=== PATIENT | male | born 1970 | race Caucasian/White ===

== ENCOUNTER → 2017-02-02 | Outpatient (CLI) | payer BC ==
[2017-02-02 12:49] LABS: Basophils % (A) 1 %; CH 33.3; CHCM 35.2; Eosinophils # (A) 0.1 k/uL (0-0.7); Eosinophils % (A) 2 %; HCT 42.6 % (39.0-53.0); HDW 2.81; HGB 14.8 gm/dL (13.0-17.5); Luc # (Auto) 0.07; Luc % (Auto) 2; Lymphocytes # (A) 1.3 k/uL (1.0-4.8); Lymphocytes % (A) 31 %; MCH 33.1 pg (25.0-35.0); MCHC 34.8 g/dL (31.0-37.0); MCV 94.9 fL (80.0-100.0); Mean Platelet Volume 7.7; Monocytes # (A) 0.2 k/uL (0-1.0); Monocytes % (A) 6 %; Neutrophils # (A) 2.6 k/uL (1.3-7.7); Neutrophils % (A) 59 %; RBC 4.49 m/uL (4.30-5.90); WBC 4.3 k/uL (3.8-10.6); WBC (Perox) 4.21
--- NOTE | 2017-02-02 12:55 | XR ---
EXAMINATION TYPE: XR shoulder complete LT DATE OF EXAM: 02/02/2017 COMPARISON: NONE HISTORY: 46-year-old male with shoulder pain for 2 weeks TECHNIQUE: 3 views FINDINGS: Mild joint space narrowing at the AC joint. Subacromial space is preserved without tendinous or bursa l calcifications. There is some sclerosis at the greater tuberosity. No acute fracture, subluxation, or dislocation. IMPRESSION: 1. No acute osseous abnormality seen. 2. Some sclerosis at the greater tuberosity could reflect underlying chronic rotator cuff tendinopath y. 3. Mild AC joint OA.
[2017-02-02 13:05] LABS: ALT 83 U/L (21-72); AST 41 U/L (17-59); Alkaline Phosphatase 63 U/L (38-126); Anion Gap 10 mmol/L; Blood Urea Nitrogen 17 mg/dL (9-20); Calcium 9.5 mg/dL (8.4-10.2); Carbon Dioxide 29 mmol/L (22-30); Chloride 104 mmol/L (98-107); Cholesterol 200 mg/dL (<200); Glucose 94 mg/dL (74-99); HDL Cholesterol 42 mg/dL (40-60); Non-African American GFR(MDRD) >60 (>60 ml/min/1.73 sqM); Potassium 4.7 mmol/L (3.5-5.1); Sodium 143 mmol/L (137-145); Total Bilirubin 0.6 mg/dL (0.2-1.3); Total Protein 6.8 g/dL (6.3-8.2); Uric Acid 5.1 mg/dL (3.5-8.5)
[2017-02-02 13:34] LABS: Prostate Specific Antigen 0.55 ng/mL (0.00-4.00)
== END | disposition home or self-care (01) ==
LOC: LABWHC1 12:10
PROVIDERS: ATTEND Nurse Practitioner Family
DX: M19.012 Primary osteoarthritis, left shoulder (principal); M75.82 Other shoulder lesions, left shoulder; I10 Essential (primary) hypertension; M10.9 Gout, unspecified; F41.9 Anxiety disorder, unspecified; R20.2 Paresthesia of skin; R07.9 Chest pain, unspecified; R53.83 Other fatigue; Z13.1 Encounter for screening for diabetes mellitus; Z13.220 Encounter for screening for lipoid disorders
CPT/HCPCS: 36415; 80053; 80061; 82607; 83036; 84153; 84443; 84550; 85025; 86677

== ENCOUNTER 2018-03-29 14:33 | Emergency (ER) | payer BC, OTHER ==
[2018-03-29] MEDS ORDERED: SODIUM CHLORIDE 0.9% 1,000 ML IV STA (14:48)
--- NOTE | 2018-03-29 14:56 | ED ---
General Adult HPI <Buzz Marquez - Last Filed: 03/29/18 17:14> - General Source: patient, RN notes reviewed Mode of arrival: ambulatory Limitations: no limitations <Missael Arndt - Last Filed: 03/29/18 17:30> - General Chief complaint: Abdominal Pain Stated complaint: Fall Time Seen by Provider: 03/29/18 14:38 - History of Present Illness Initial comments: Patient 47-year-old male presenting to the emergency room today with a chief complaint of pain in the right upper quadrant that started 4 hours ago. He does admit that he was outside cutting down a tree. He states he was standing at the top of an 8 foot ladder when the tree began to come towards him so he jumped out of the way. He states he landed on his feet on the ground when he bent down and had pain in the right upper quadrant. Patient states the pain has been present since. States it as a "burning" type pain in the right upper quadrant. Currently rates pain 6/10. Denies any radiation. He states movement does not seem to make it any worse. He does admit that he tried to eat some crackers and the pain got worse. Patient denies any other points of symptoms. (Missael Arndt) - Related Data Home Medications Medication Instructions Recorded Confirmed Atenolol [Tenormin] 100 mg PO DAILY 01/17/14 03/29/18 Omeprazole [PriLOSEC] 20 mg PO DAILY 01/17/14 03/29/18 Allopurinol [Zyloprim] 100 mg PO DAILY 03/29/18 03/29/18 Hydrochlorothiazide [Hydrodiuril] 25 mg PO DAILY 03/29/18 03/29/18 Ibuprofen [Motrin] 800 mg PO TID PRN 03/29/18 03/29/18 Lisinopril [Zestril] 2.5 mg PO DAILY 03/29/18 03/29/18 Allergies Allergy/AdvReac Type Severity Reaction Status Date / Time meperidine HCl [From Demerol] Allergy Anaphylaxis Verified 03/29/18 15:27 Review of Systems ROS Other: All systems not noted in ROS Statement are negative. <Buzz Marquez - Last Filed: 03/29/18 17:14> ROS Other: All systems not noted in ROS Statement are negative. <Missael Arndt - Last Filed: 03/29/18 17:30> ROS Statement: Those systems with pertinent positive or pertinent negative responses have been documented in the HPI. Past Medical History Past Medical History: Hypertension Additional Past Medical History / Comment(s): gout History of Any Multi-Drug Resistant Organisms: None Reported Past Surgical History: Appendectomy, Orthopedic Surgery Past Psychological History: No Psychological Hx Reported Smoking Status: Former smoker Past Alcohol Use History: None Reported Past Drug Use History: None Reported <Missael Arndt - Last Filed: 03/29/18 17:30> General Exam <Buzz Marquez - Last Filed: 03/29/18 17:14> Limitations: no limitations <Missael Arndt - Last Filed: 03/29/18 17:30> - General Exam Comments Initial Comments: General: The patient is awake and alert, in no distress, and does not appear acutely ill. Eye: There is normal conjunctiva bilaterally. No signs of icterus. Ears, nose, mouth and throat: There are moist mucous membranes and no oral lesions. Neck: The neck is supple, there is no tenderness or JVD. Cardiovascular: There is a regular rate and rhythm. No murmur, rub or gallop is appreciated. Respiratory: Lungs are clear to auscultation, respirations are non-labored, breath sounds are equal. No wheezes, stridor, rales, or rhonchi. Gastrointestinal: Admits soft on palpation. There is no bruising or ecchymosis. Patient is tender right upper quadrant. No rebound, guarding or CVA tenderness. Musculoskeletal: Normal ROM, no tenderness. Strength 5/5. Sensation intact. Pulses equal bilaterally 2+. Neurological: A&O x 3. CN II-XII intact, There are no obvious motor or sensory deficits. Coordination appears grossly intact. Speech is normal. Skin: Skin is warm and dry and no rashes or lesions are noted. Psychiatric: Cooperative, appropriate mood & affect, normal judgment. (Missael Arndt) Course <Buzz Marquez - Last Filed: 03/29/18 17:14> <Missael Arndt - Last Filed: 03/29/18 17:30> Vital Signs 03/29/18 03/29/18 03/29/18 14:34 15:32 16:18 Temperature 98.3 F Pulse Rate 64 57 L 57 L Respiratory 20 15 16 Rate Blood Pressure 162/101 171/114 161/98 O2 Sat by Pulse 99 97 98 Oximetry 03/29/18 03/29/18 16:30 16:50 Temperature Pulse Rate 58 L Respiratory 16 Rate Blood Pressure 149/99 164/102 O2 Sat by Pulse 98 Oximetry - Reevaluation(s) Reevaluation #1: 03/29/18 17:14 Patient reevaluated by myself, Dr. Marquez. Patient resting comfortably in bed. Mild tenderness right upper abdomen. Patient states he does have history of chronic elevation of his liver enzymes. CT report reviewed. Patient updated. Case was discussed with trauma surgeon on-call, Dr. Polanco who is comfortable with discharge home. She can follow-up with the patient. Patient was specifically noted of potential concern for bladder changes and need for follow-up with that as well. (Buzz Marquez) Medical Decision Making - Lab Data Result diagrams: 03/29/18 15:30 03/29/18 15:30 <Buzz Marquez - Last Filed: 03/29/18 17:14> - Lab Data Result diagrams: 03/29/18 15:30 03/29/18 15:30 <Missael Arndt - Last Filed: 03/29/18 17:30> - Medical Decision Making Patient's CT of the abdomen and pelvis reviewed and shows 1. Some possible mild bruising of these EKGs tissue along the flanks. 2. Otherwise, no acute traumatic sequelae identified in the abdomen or the pelvis. 3. Hepatomegaly with hepatic stenosis. 4. Appearance of eccentric right posterior bladder wall thickening may be due to patient motion artifact. 5. Bilateral L5 pars defects as read by radiologist. Case discussed and seen by [facility] physician Dr. Marquez. He did discuss the case with surgeon fire investigation lieutenant who recommends the patient may follow-up in the office. Patient also be given urologist fire investigation lieutenant to follow up with over the next 2 days. Advised to return if symptoms increase or worsen or for any other concerns. ( Missael Arndt) - Lab Data Lab Results 03/29/18 03/29/18 03/29/18 Range/Units 15:30 15:30 15:30 WBC 5.4 (3.8-10.6) k/uL RBC 5.18 (4.30-5.90) m/uL Hgb 16.2 (13.0-17.5) gm/dL Hct 47.6 (39.0-53.0) % MCV 91.9 (80.0-100.0) fL MCH 31.4 (25.0-35.0) pg MCHC 34.1 (31.0-37.0) g/dL RDW 13.3 (11.5-15.5) % Plt Count 208 (150-450) k/uL Neutrophils % 58 % Lymphocytes % 31 % Monocytes % 6 % Eosinophils % 2 % Basophils % 1 % Neutrophils # 3.1 (1.3-7.7) k/uL Lymphocytes # 1.7 (1.0-4.8) k/uL Monocytes # 0.3 (0-1.0) k/uL Eosinophils # 0.1 (0-0.7) k/uL Basophils # 0.1 (0-0.2) k/uL PT (9.0-12.0) sec INR (<1.2) APTT (22.0-30.0) sec Sodium 142 (137-145) mmol/L Potassium 4.2 (3.5-5.1) mmol/L Chloride 102 (98-107) mmol/L Carbon Dioxide 30 (22-30) mmol/L Anion Gap 10 mmol/L BUN 20 (9-20) mg/dL Creatinine 0.89 (0.66-1.25) mg/dL Est GFR (CKD-EPI)AfAm >90 (>60 ml/min/1.73 sqM) Est GFR (CKD-EPI)NonAf >90 (>60 ml/min/1.73 sqM) Glucose 98 (74-99) mg/dL Calcium 9.6 (8.4-10.2) mg/dL Total Bilirubin 0.5 (0.2-1.3) mg/dL AST 87 H (17-59) U/L ALT 163 H (21-72) U/L Alkaline Phosphatase 58 (38-126) U/L Total Protein 7.7 (6.3-8.2) g/dL Albumin 4.7 (3.5-5.0) g/dL Amylase 53 (30-110) U/L Lipase 188 (23-300) U/L Urine Color Yellow Urine Appearance Clear (Clear) Urine pH 6.5 (5.0-8.0) Ur Specific Howell 1.014 (1.001-1.035) Urine Protein Negative (Negative) Urine Glucose (UA) Negative (Negative) Urine Ketones Negative (Negative) Urine Blood Negative (Negative) Urine Nitrite Negative (Negative) Urine Bilirubin Negative (Negative) Urine Urobilinogen <2.0 (<2.0) mg/dL Ur Leukocyte Esterase Negative (Negative) 03/29/18 Range/Units 15:30 WBC (3.8-10.6) k/uL RBC (4.30-5.90) m/uL Hgb (13.0-17.5) gm/dL Hct (39.0-53.0) % MCV (80.0-100.0) fL MCH (25.0-35.0) pg MCHC (31.0-37.0) g/dL RDW (11.5-15.5) % Plt Count (150-450) k/uL Neutrophils % % Lymphocytes % % Monocytes % % Eosinophils % % Basophils % % Neutrophils # (1.3-7.7) k/uL Lymphocytes # (1.0-4.8) k/uL Monocytes # (0-1.0) k/uL Eosinophils # (0-0.7) k/uL Basophils # (0-0.2) k/uL PT 9.4 (9.0-12.0) sec INR 0.9 (<1.2) APTT 23.4 (22.0-30.0) sec Sodium (137-145) mmol/L Potassium (3.5-5.1) mmol/L Chloride (98-107) mmol/L Carbon Dioxide (22-30) mmol/L Anion Gap mmol/L BUN (9-20) mg/dL Creatinine (0.66-1.25) mg/dL Est GFR (CKD-EPI)AfAm (>60 ml/min/1.73 sqM) Est GFR (CKD-EPI)NonAf (>60 ml/min/1.73 sqM) Glucose (74-99) mg/dL Calcium (8.4-10.2) mg/dL Total Bilirubin (0.2-1.3) mg/dL AST (17-59) U/L ALT (21-72) U/L Alkaline Phosphatase (38-126) U/L Total Protein (6.3-8.2) g/dL Albumin (3.5-5.0) g/dL Amylase (30-110) U/L Lipase (23-300) U/L Urine Color Urine Appearance (Clear) Urine pH (5.0-8.0) Ur Specific Howell (1.001-1.035) Urine Protein (Negative) Urine Glucose (UA) (Negative) Urine Ketones (Negative) Urine Blood (Negative) Urine Nitrite (Negative) Urine Bilirubin (Negative) Urine Urobilinogen (<2.0) mg/dL Ur Leukocyte Esterase (Negative) Disposition <Buzz Marquez - Last Filed: 03/29/18 17:14> Is patient prescribed a controlled substance at d/c from ED?: No Time of Disposition: 17:30 <Missael Arndt - Last Filed: 03/29/18 17:30> Clinical Impression: Abdominal pain Disposition: HOME SELF-CARE Condition: Good Instructions: Abdominal Pain (ED) Additional Instructions: Please follow-up with general surgeon, urologist, family doctor in the next 2 days of symptoms have not improved. Please return to emergency room if the symptoms increase or worsen or for any other concerns. Referrals: Jack Ley MD [Primary Care Provider] - 1-2 days Aby Luther MD [STAFF PHYSICIAN] - 1-2 days Edmundo White MD [STAFF PHYSICIAN] - 1-2 days
[2018-03-29 15:52] LABS: Appearance,Urine Clear (Clear); Bilirubin,Urine Negative (Negative); Blood,Urine Negative (Negative); Color,Urine Yellow; Glucose,Urine (UA) Negative (Negative); Ketones,Urine Negative (Negative); Leukocyte Esterase,Urine Negative (Negative); Nitrite,Urine Negative (Negative); PH, Urine 6.5 (5.0-8.0); Protein,Urine Negative (Negative); Specific Gravity,Urine 1.014 (1.001-1.035); Urobilinogen,Urine <2.0 mg/dL (<2.0)
[2018-03-29 15:54] LABS: Basophils # (A) 0.1 k/uL (0-0.2); Basophils % (A) 1 %; Eosinophils # (A) 0.1 k/uL (0-0.7); Eosinophils % (A) 2 %; HCT 47.6 % (39.0-53.0); HGB 16.2 gm/dL (13.0-17.5); Lymphocytes # (A) 1.7 k/uL (1.0-4.8); Lymphocytes % (A) 31 %; MCH 31.4 pg (25.0-35.0); MCHC 34.1 g/dL (31.0-37.0); MCV 91.9 fL (80.0-100.0); Mean Platelet Volume 6.8; Monocytes # (A) 0.3 k/uL (0-1.0); Monocytes % (A) 6 %; Neutrophils # (A) 3.1 k/uL (1.3-7.7); Neutrophils % (A) 58 %; Platelet Count 208 k/uL (150-450); RBC 5.18 m/uL (4.30-5.90); RDW 13.3 % (11.5-15.5); WBC 5.4 k/uL (3.8-10.6)
[2018-03-29 16:04] LABS: INR 0.9 (<1.2); Partial Thromboplastin Time 23.4 sec (22.0-30.0); Prothrombin Time 9.4 sec (9.0-12.0)
[2018-03-29 16:09] LABS: ALT 163 U/L (21-72); AST 87 U/L (17-59); Albumin 4.7 g/dL (3.5-5.0); Alkaline Phosphatase 58 U/L (38-126); Amylase 53 U/L (30-110); Anion Gap 10 mmol/L; Blood Urea Nitrogen 20 mg/dL (9-20); Calcium 9.6 mg/dL (8.4-10.2); Carbon Dioxide 30 mmol/L (22-30); Chloride 102 mmol/L (98-107); Glucose 98 mg/dL (74-99); Lipase 188 U/L (23-300); Potassium 4.2 mmol/L (3.5-5.1); Sodium 142 mmol/L (137-145); Total Bilirubin 0.5 mg/dL (0.2-1.3); Total Protein 7.7 g/dL (6.3-8.2)
[2018-03-29] MEDS ORDERED: hydrALAZINE HCL 20 MG/ML 1 ML VIAL IVP STA (16:15)
[2018-03-29 16:22] VITALS: RESP 16
--- NOTE | 2018-03-29 16:29 | CT ---
EXAMINATION TYPE: CT abdomen pelvis w con DATE OF EXAM: 03/29/2018 COMPARISON: 07/08/2010 HISTORY: 47-year-old male Fall from back of truck, right sided abdomen pain. TECHNIQUE: Contiguous axial scanning of the abdomen and pelvis following administration of 100 ml Iso jose 300 IV contrast. Delayed images through the kidneys and coronal/sagittal reconstructions perform ed. CT DLP: 2389 mGycm Automated exposure control for dose reduction was used. FINDINGS: Heart upper limits of normal in size without pericardial effusion. Small hiatal hernia. Some hazy densities in both lower lungs likely areas of atelectasis. Low attenuation of the hepatic parenchyma with the liver measuring mildly enlarged approximately 19 c m. No focal lesion identified. Portal venous system is patent. No biliary ductal dilatation. Gallbladder, adrenal glands, left kidney, spleen, and pancreas appear within normal limits. 1.3 cm likely cortical cyst posterior right kidney. No hydronephrosis. Mild sienna mesentery centrally in the abdomen with scattered prominent but nonenlarged lymph nodes me asuring up to 6 mm. Finding is unchanged from 2010 suggesting a chronic, benign postinflammatory etio logy. No dilated small bowel, free fluid, or free air. The appendix is not discretely visualized. No second adolph findings of acute appendicitis. Prominent motion artifacts along the lower abdomen. Mild stool burden without pericolonic inflammator y change. Circumferential bladder wall thickening. Despite motion artifacts accounting for apparent eccentric b ladder wall thickening posteriorly on the right, refer to axial image 82. No abnormal fluid collectio n in the pelvis or pelvic lymphadenopathy. There is some mild edema along the deep subcutaneous adipose layer along the right flank. There are b ilateral L5 pars defects and mild degenerative changes lower lumbar spine. Mild degenerative changes at the hips. IMPRESSION: 1. SOME POSSIBLE MILD BRUISING OF THE SUBCUTANEOUS TISSUES ALONG THE FLANKS. 2. OTHERWISE, NO ACUTE TRAUMATIC SEQUELAE IDENTIFIED IN THE ABDOMEN OR PELVIS. 3. HEPATOMEGALY WITH HEPATIC STEATOSIS. 4. THE APPEARANCE OF ECCENTRIC RIGHT POSTERIOR BLADDER WALL THICKENING MAY BE DUE TO PATIENT MOTION A RTIFACT. CORRELATE WITH URINALYSIS AND URINE CYTOLOGY TO ASSESS THE NEED FOR DIRECT VISUALIZATION TO EXCLUDE A UROTHELIAL LESION. 5. BILATERAL L5 PARS DEFECTS.
[2018-03-29 17:48] VITALS: BP 152/89; PULSE 56
[2018-03-29 18:00] VITALS: TEMP 97.9
== END 2018-03-29 17:59 | disposition home or self-care (01) ==
LOC: EC 14:33
DX: R10.11 Right upper quadrant pain (principal); K76.0 Fatty (change of) liver, not elsewhere classified; N32.89 Other specified disorders of bladder; I10 Essential (primary) hypertension; M10.9 Gout, unspecified; Z87.891 Personal history of nicotine dependence; Z79.899 Other long term (current) drug therapy; Z88.5 Allergy status to narcotic agent; Z90.49 Acquired absence of other specified parts of digestive tract
CPT/HCPCS: 36415; 80053; 82150; 83690; 85025; 85610; 85730; 81003; 74177; 99284; 96374; 96361 ×2; J0360; Q9967

== ENCOUNTER → 2018-05-04 | Outpatient (CLI) | payer OTHER | END | disposition home or self-care (01) | LOC: LABPAT 15:18 | PROVIDERS: ATTEND Surgery Plastic and Reconstructive Surgery | DX: Z01.818 Encounter for other preprocedural examination (principal) | CPT/HCPCS: 93005 ==

== ENCOUNTER 2018-05-08 06:08 | Day surgery (SDC) | payer OTHER ==
[2018-05-04 10:20] VITALS: BMI 40.3
--- NOTE | 2018-05-07 15:21 | P.GSHP ---
History of Present Illness H&P Date: 05/08/18 CHIEF COMPLAINT: Cholecystitis HISTORY OF PRESENT ILLNESS: The patient is a 47-year-old male who presents with history of epigastric including right upper quadrant abdominal pain. He underwent diagnostic studies for the gallbladder. Separately his clinical picture was consistent with cholecystitis. Now he presents for surgical intervention. PAST MEDICAL HISTORY: Please see list PAST SURGICAL HISTORY: Please see list MEDICATIONS: Please see list ALLERGIES: Denies. SOCIAL HISTORY: No illicit drug use or recent tobacco use FAMILY HISTORY: Pertinent for gallbladder disease REVIEW OF ORGAN SYSTEMS: CONSTITUTIONAL: No reports of fevers or chills. HEENT: Denies any troubles with the vision or hearing. ENDOCRINE: No reports of hypothyroidism. No diabetes. RESPIRATORY: No recent pneumonias. CARDIOVASCULAR: Denies chest pain or palpitations GI: No blood in stools or constipation. MUSCULOSKELETAL: Has occasional joint pain including back pain. NEURO: No seizure disorders or headaches. No recent stroke. PSYCH: No depression or suicidal ideation. HEMATOLOGIC: No personal or family history of DVTs or pulmonary emboli. PHYSICAL EXAM: VITAL SIGNS: Afebrile vital signs stable GENERAL: Well-developed pleasant male in no acute distress. HEENT: No scleral icterus. Extraocular movements grossly intact. Moist buccal mucosa. NECK: Supple without lymphadenopathy. CHEST: Unlabored respirations. Equal bilateral excursions. CARDIOVASCULAR: Regular rate regular rhythm rhythm. Distal 2+ pulses. ABDOMEN: Soft, nondistended. Tender along the epigastrium and right upper quadrant. MUSCULOSKELETAL: No clubbing, cyanosis, or edema. NEURO : No focal or lateralizing signs. Cranial nerves II-12 within normal limits. PSYCH: Alert and oriented to person, place and time. SKIN: Well perfused. Good skin turgor. ASSESSMENT: 1. Epigastric and right upper quadrant abdominal pain 2. Chronic cholecystitis PLAN: 1. Will need a robotic cholecystectomy possible open. Benefits and risks were described. 2. Heparin for DVT prophylaxis 5000 units. 3. Antibiotic prophylaxis. Past Medical History Past Medical History: GERD/Reflux, Hypertension Additional Past Medical History / Comment(s): gout History of Any Multi-Drug Resistant Organisms: None Reported Past Surgical History: Appendectomy, Orthopedic Surgery Additional Past Surgical History / Comment(s): rt index finger reattached Past Anesthesia/Blood Transfusion Reactions: Motion Sickness Smoking Status: Former smoker - Past Family History Mother Family Medical History: Cancer Additional Family Medical History / Comment(s): melanoma Medications and Allergies Home Medications Medication Instructions Recorded Confirmed Type Atenolol [Tenormin] 100 mg PO HS 01/17/14 05/04/18 History Omeprazole [PriLOSEC] 20 mg PO HS 01/17/14 05/04/18 History Allopurinol [Zyloprim] 100 mg PO HS 03/29/18 05/04/18 History Hydrochlorothiazide [Hydrodiuril] 25 mg PO HS 03/29/18 05/04/18 History Allergies Allergy/AdvReac Type Severity Reaction Status Date / Time meperidine HCl [From Demerol] Allergy Anaphylaxis Verified 05/04/18 10:06
[~2018-05-08 06:08] MED LIST: HEPARIN SODIUM,PORCINE 5,000 UNIT/ML 1 ML VIAL SQ ONE
[2018-05-08] MEDS ORDERED: ONDANSETRON 4 MG/2 ML VIAL IVP ONE (07:02)
[2018-05-08] MEDS ORDERED: LACTATED RINGERS 1,000 ML IV ONE (07:03)
[2018-05-08] MEDS ORDERED: DEXAMETHASONE SOD PHOSPHATE 10 MG/ML 1 ML VIAL IV ONE (07:03)
[2018-05-08 07:53] LABS: ALT 119 U/L (21-72); AST 56 U/L (17-59); Albumin 4.2 g/dL (3.5-5.0); Alkaline Phosphatase 53 U/L (38-126); Anion Gap 8 mmol/L; Blood Urea Nitrogen 19 mg/dL (9-20); Calcium 9.5 mg/dL (8.4-10.2); Carbon Dioxide 32 mmol/L (22-30); Chloride 104 mmol/L (98-107); Glucose 127 mg/dL (74-99); Potassium 4.7 mmol/L (3.5-5.1); Sodium 144 mmol/L (137-145); Total Bilirubin 0.7 mg/dL (0.2-1.3); Total Protein 6.8 g/dL (6.3-8.2)
[2018-05-08] MEDS ORDERED: NEOSTIGMINE 1 MG/ML 10 ML VIAL ONE (08:37)
[2018-05-08] MEDS ORDERED: GLYCOPYRROLATE 0.2 MG/ML 2 ML VIAL ONE (08:37)
[2018-05-08] MEDS ORDERED: LIDOCAINE 1% INJ 10MG/ML (20 ML MDV) ONE (08:37)
[2018-05-08] MEDS ORDERED: SUCCINYLCHOLINE CHLORIDE VIAL 200 MG/10 ML VIAL IV ONE (08:37)
[2018-05-08] MEDS ORDERED: VECURONIUM 10 MG VIAL IV ONE (08:37)
[2018-05-08] MEDS ORDERED: MIDAZOLAM 2 MG/2 ML VIAL ONE (08:37)
[2018-05-08] MEDS ORDERED: PROPOFOL 10 MG/ML 20 ML VIAL IV ONE (08:37)
[2018-05-08] MEDS ORDERED: fentaNYL (PF) 50 MCG/ML 2 ML AMP ONE (08:37)
[2018-05-08] MEDS ORDERED: INDOCYANINE GREEN 25 MG VIAL IV STA (08:54)
[2018-05-08] MEDS ORDERED: BUPIVACAIN-EPI 0.25%-1:200,000 30 ML VIAL SQ ONE (08:58)
--- NOTE | 2018-05-08 10:05 | P.PCN ---
Date of Procedure: 05/08/18 Description of Procedure: PREOPERATIVE DIAGNOSIS: Gastroesophageal reflux disease. Morbid obesity. POSTOPERATIVE DIAGNOSIS: Morbid obesity. Gastritis. Gastroesophageal reflux disease. Diaphragmatic hiatal hernia OPERATION: Esophagogastroduodenoscopy with biopsies along antrum. SURGEON: Aby Luther MD ANESTHESIA: MAC. INDICATIONS: The patient is a 47-year-old male who presents with a history of reflux disease. Benefits and risks of the procedure were described. Informed consent was obtained. DESCRIPTION: The patient was brought into the endoscopy suite and laid in the left lateral decubitus position. An Olympus gastroscope was passed along the posterior oropharynx down to the distal esophagus where the squamocolumnar junction was encountered at 40 cm from the incisors. The stomach was entered and no bile reflux was found. Additional findings are listed below. Biopsies with cold forceps were obtained of the antrum. The first through third portion of the duodenum was examined and unremarkable. Retroflexion of the scope confirmed Hill grade 3 lower esophageal valve. The squamocolumnar junction demonstrated LA grade B erosive esophagitis. The stomach was desufflated. The patient tolerated the procedure well. FINDINGS: Squamocolumnar junction 37 cm from the incisors. Diaphragmatic hiatus at 40 cm. Hiatal hernia, 3 cm Hill grade 3 lower esophageal valve. LA grade A erosive esophagitis. No active duodenitis. Chronic gastritis RECOMMENDATIONS: Upper endoscopy as needed.
[2018-05-08 10:11] VITALS: TEMP 97
--- NOTE | 2018-05-08 10:12 | P.OP ---
Date of Procedure: 05/08/18 Description of Procedure: SURGEON: KAT ZHANG MD PREOPERATIVE DIAGNOSES: 1. Right upper quadrant abdominal pain 2. Chronic cholecystitis 3. Morbid obesity due to excess calories, BMI 40 4. Gastroesophageal reflux disease 5. Hypertensive heart disease 6. Gout POSTOPERATIVE DIAGNOSES: 1. Right upper quadrant abdominal pain 2. Chronic cholecystitis 3. Morbid obesity due to excess calories, BMI 40 4. Gastroesophageal reflux disease 5. Hypertensive heart disease 6. Gout 7. Fatty liver disease 8. Moderate hepatomegaly OPERATION: 1. Robotic-assisted da Janis Xi laparoscopic cholecystectomy, multiport with FIREFLY 2. Intraoperative esophagogastroduodenoscopy with cold forceps biopsy (please see separate procedure note) ESTIMATED BLOOD LOSS: 5 mL. SPECIMENS REMOVED: Gallbladder. COMPLICATIONS: None. OPERATIVE FINDINGS: 1. Chronic cholecystitis 2. Moderate hepatomegaly with fatty liver disease INDICATIONS: The patient is a 47-year-old male who presents with cholelcystitis. Surgical intervention with a laparoscopic cholecystectomy was described at length including injury to the biliary tree, bleeding, infection, need for further surgery. Informed consent was obtained. Robotic assisted laparoscopic approach was described. Benefits and risks of the procedure including but not limited to bleeding, infection, injury to the biliary tree was described. Informed consent was obtained. DESCRIPTION OF PROCEDURE: Patient was brought to the operating room, placed in supine position. After general induction, the abdomen had been prepped and draped in standard sterile fashion. The robotic da Janis XI system was primed. After a timeout protocol was performed, the patient had been prepped and draped in standard sterile fashion. The patient was injected with indocyanine green. A 5 mm 0 degrees laparoscopic trocar entry was performed along the left upper quadrant. The abdomen insufflated to 15 mmHg pressure which was tolerated well. Diagnostic laparoscopy demonstrated no injury to bowel viscera or mesentery. The liver surface was unremarkable. Next, two 8 mm robotic ports were placed along the right upper abdomen. The camera 8-mm port was maintained along the epigastrium. Another 8 mm port was placed along the left upper abdominal wall after exchanging the 5 mm port. Please note that the ports were placed at least 10 to 15 cm away from the target anatomy of the gallbladder. The robot was docked along the left lateral abdomen. The patient was repositioned in reverse Trendelenburg position. Using a grasper for arm 3, a grasper for arm 4, including hook cautery for arm 1 , the robotic system was docked and primed as described. Instruments were interchanged by the optometry assistant including hook cautery, Bovie cautery and clip appliers. I had sat at the console. The gallbladder fundus was retracted over the dome of the liver. Initial attention was brought to the infundibulum which was gently retracted in the inferior lateral approach. Using a grasper, the cystic duct including the cystic artery was carefully skeletonized. FIREFLY was used to identify the cystic artery and cystic structures. Large PLASTIC clips were used throughout the entire case. Using a clip pipe bending machine operator 2 clips were placed proximally, and 1 clip was placed distally along the cystic duct and then cauterized with the cautery. Again care was taken to avoid any injury to the biliary tree as the common bile duct was clearly visualized during this portion of dissection. Next, the cystic artery was similarly clipped and cauterized. Electro-Bovie cautery was used to remove the gallbladder from the hepatic fossa. Hemostasis was checked and found to be adequate. The robot was undocked. I re-scrubbed into the case. Using a 10 mm Endo Catch bag via the left upper quadrant incision, the specimen was removed from the abdominal cavity. All pneumoperitoneum instruments were evacuated from the abdominal cavity. The incisions were reapproximated using 4-0 Monocryl in an interrupted subcuticular fashion. Fascial defects were less than 8 mm in size. Please note along the trocar sites, local anesthetic was placed as a field block prior to insertion of all instruments. Liquid glue was applied to the skin. At the end of the procedure needle, sponge, and instrument count had been verified correct by the converting technician. The patient was transferred to postanesthesia care unit in stable condition. Intraoperative films were shared with the patient's family who were very pleased with the level of care. Plan - Discharge Summary New Discharge Prescriptions: No Action Atenolol [Tenormin] 100 mg PO HS Omeprazole [PriLOSEC] 20 mg PO HS Hydrochlorothiazide [Hydrodiuril] 25 mg PO HS Allopurinol [Zyloprim] 100 mg PO HS Discharge Medication List Atenolol [Tenormin] 100 mg PO HS 01/17/14 [History] Omeprazole [PriLOSEC] 20 mg PO HS 01/17/14 [History] Allopurinol [Zyloprim] 100 mg PO HS 03/29/18 [History] Hydrochlorothiazide [Hydrodiuril] 25 mg PO HS 03/29/18 [History]
[2018-05-08] MEDS: HYDROmorphone 1 MG/ML 1 ML SYRINGE IVP ONE ×4 (10:21→10:38)
[2018-05-08] MEDS ORDERED: ONDANSETRON ODT 4 MG TAB PO ONE (14:10)
[2018-05-08 15:03] VITALS: RESP 16
[2018-05-08 15:07] VITALS: BP 133/63; PULSE 67
== END 2018-05-08 15:15 | disposition home or self-care (01) ==
LOC: OR 06:08
PROVIDERS: ATTEND Surgery Plastic and Reconstructive Surgery
DX: K80.44 Calculus of bile duct with chronic cholecystitis without obstruction (principal); K29.50 Unspecified chronic gastritis without bleeding; K22.10 Ulcer of esophagus without bleeding; K44.9 Diaphragmatic hernia without obstruction or gangrene; K21.0 Gastro-esophageal reflux disease with esophagitis; E66.01 Morbid (severe) obesity due to excess calories; Z68.41 Body mass index [BMI] 40.0-44.9, adult; I11.9 Hypertensive heart disease without heart failure; M10.9 Gout, unspecified; K76.0 Fatty (change of) liver, not elsewhere classified; I10 Essential (primary) hypertension; Z87.891 Personal history of nicotine dependence; Z79.899 Other long term (current) drug therapy; Z88.5 Allergy status to narcotic agent
CPT/HCPCS: 43239; 47562; S2900; 80053; 88304; 88305; 88342

== ENCOUNTER 2019-06-10 22:18 | Emergency (ER) | payer OTHER ==
--- NOTE | 2019-06-10 22:58 | ED ---
General Adult HPI - General Chief complaint: Recheck/Abnormal Lab/Rx Stated complaint: Hypertension Time Seen by Provider: 06/10/19 22:34 Source: patient, RN notes reviewed Mode of arrival: ambulatory Limitations: no limitations - History of Present Illness Initial comments: 48-year-old male with a past history of GERD, hypertension presents to the [facility] department for a chief complaint of high blood pressure. Patient states that he was seen at [place] earlier today and diagnosed with influenza A. Patient also had high blood pressure there. States that it was controlled in the emergency department and he was discharged home. States that at home he rechecked his blood pressure and it was 200 over something. He called his doctor who told him to take another blood pressure medication. Patient states he waited a little bit but his blood pressure did not come down. Patient states he did have a mild headache at that time but he does not have any headache. Patient has no other complaints at this time including shortness of breath, chest pain, abdominal pain, nausea or vomiting, or visual changes. - Related Data Home Medications Medication Instructions Recorded Confirmed Atenolol [Tenormin] 100 mg PO HS 01/17/14 05/08/18 Omeprazole [PriLOSEC] 20 mg PO HS 01/17/14 05/08/18 Allopurinol [Zyloprim] 100 mg PO HS 03/29/18 05/08/18 Hydrochlorothiazide [Hydrodiuril] 25 mg PO HS 03/29/18 05/08/18 Previous Rx's Medication Instructions Recorded HYDROcodone/APAP 7.5-325MG [Jayess 1 tab PO Q4H PRN 3 Days #18 tab 05/08/18 7.5-325] Ibuprofen [Motrin] 600 mg PO Q8HR PRN #30 tab 05/08/18 Allergies Allergy/AdvReac Type Severity Reaction Status Date / Time meperidine HCl [From Demerol] Allergy Anaphylaxis Verified 06/10/19 22:22 Review of Systems ROS Statement: Those systems with pertinent positive or pertinent negative responses have been documented in the HPI. ROS Other: All systems not noted in ROS Statement are negative. Past Medical History Past Medical History: GERD/Reflux, Hypertension Additional Past Medical History / Comment(s): gout History of Any Multi-Drug Resistant Organisms: None Reported Past Surgical History: Appendectomy, Cholecystectomy, Orthopedic Surgery Additional Past Surgical History / Comment(s): rt index finger reattached Past Anesthesia/Blood Transfusion Reactions: Motion Sickness Past Psychological History: Anxiety Smoking Status: Former smoker Past Alcohol Use History: None Reported Past Drug Use History: None Reported - Past Family History Mother Family Medical History: Cancer Additional Family Medical History / Comment(s): melanoma General Exam Limitations: no limitations General appearance: alert, in no apparent distress Head exam: Present: atraumatic, normocephalic, normal inspection Eye exam: Present: normal appearance, PERRL, EOMI. Absent: scleral icterus, conjunctival injection, periorbital swelling ENT exam: Present: normal exam, mucous membranes moist Neck exam: Present: normal inspection. Absent: tenderness, meningismus, lymphadenopathy Respiratory exam: Present: normal lung sounds bilaterally. Absent: respiratory distress, wheezes, rales, rhonchi, stridor Cardiovascular Exam: Present: regular rate, normal rhythm, normal heart sounds. Absent: systolic murmur, diastolic murmur, rubs, gallop, clicks GI/Abdominal exam: Present: soft, normal bowel sounds. Absent: distended, tenderness, guarding, rebound, rigid Course Vital Signs 06/10/19 22:19 Temperature 99.8 F H Pulse Rate 98 Respiratory 20 Rate Blood Pressure 160/83 O2 Sat by Pulse 96 Oximetry Medical Decision Making - Medical Decision Making Vitals are stable. Patient has a low-grade fever of 99.8 likely reflected to influenza A diagnoses earlier today. Patient's blood pressure is controlled at this time 160/83. Patient is not currently having any symptoms whatsoever. I offered further workup to patient including blood work however he declines at this time stating he wanted to go home when he saw his blood pressure was better anyway. I did discuss with patient that if he begins having any symptoms he needs to return here to the emergency determine. He is in agreement with this. He will follow up with his primary care provider. I discussed this case with attending Dr. Lange who agrees with this assessment and treatment plan. Disposition Clinical Impression: History of influenza, Hypertension Disposition: HOME SELF-CARE Condition: Good Instructions (If sedation given, give patient instructions): Influenza (ED) Additional Instructions: Please continue to take your blood pressure medication as directed. Drink plenty of fluids. Take motrin and tylenol for fever. Follow up with primary care in 1-2 days. Return to the emergency department if you have any worsening symptoms. Is patient prescribed a controlled substance at d/c from ED?: No Referrals: Karel Cole MD [Primary Care Provider] - 1-2 days Time of Disposition: 22:56
[2019-06-10 23:31] VITALS: BP 117/81; PULSE 88; RESP 18; TEMP 98.9
== END 2019-06-10 23:25 | disposition home or self-care (01) ==
LOC: EC 22:18
DX: I10 Essential (primary) hypertension (principal); J10.1 Influenza due to other identified influenza virus with other respiratory manifestations; K21.9 Gastro-esophageal reflux disease without esophagitis; M10.9 Gout, unspecified; Z87.891 Personal history of nicotine dependence; Z90.49 Acquired absence of other specified parts of digestive tract; Z98.890 Other specified postprocedural states; Z79.899 Other long term (current) drug therapy; Z88.5 Allergy status to narcotic agent
CPT/HCPCS: 99283

== ENCOUNTER 2020-10-14 02:35 | Inpatient (IN) | payer BC, OTHER ==
--- NOTE | 2020-10-14 03:06 | ED ---
Pediatric HENT HPI - General Chief Complaint: ENT Stated Complaint: RT ear infection Time Seen by Provider: 10/14/20 02:59 Source: patient Mode of arrival: ambulatory Limitations: no limitations - History of Present Illness Initial Comments: This patient is a 50-year-old man who presents with worsening of right here pain. He states that he started having symptoms approximately 2 weeks ago when he was at his vacation home in [facility]. He went and saw a physician in that area, was told that he had an ear infection, and states that the tympa delfina membrane was ruptured at that time as well. He had been given prescription for antibiotics which she has been taking. He returned to this area and was seen by the ear nose throat clinic. He states that they added ofloxacin drops so he is been treated with oral antibiotics as well as topical. Patient notes that over the past day or so he has had worsening of the pain and also seems to be spreading causing headache as well. MD Complaint: ear pain -: week(s) Fever: No Pain Location: right ear Radiation: none Quality: sharp Consistency: constant Improves With: nothing Worsens With: nothing Associated Symptoms: ear discharge - Related Data Home Medications Medication Instructions Recorded Confirmed Atenolol [Tenormin] 100 mg PO HS 01/17/14 10/14/20 Omeprazole [PriLOSEC] 20 mg PO HS 01/17/14 10/14/20 allopurinoL [Zyloprim] 100 mg PO HS 03/29/18 10/14/20 hydroCHLOROthiazide [Hydrodiuril] 25 mg PO QAM 03/29/18 10/14/20 busPIRone HCl [Buspar] 5 mg PO HS 10/14/20 10/14/20 metFORMIN HCL 1,000 mg PO BID 10/14/20 10/14/20 Previous Rx's Medication Instructions Recorded Ciprofloxacin-Dexameth [Ciprodex 10 drops RIGHT EAR TID #100 ml 10/17/20 Otic Susp] Naproxen [Naprosyn] 250 mg PO TID #30 tab 10/17/20 cefTRIAXone [Rocephin] 2,000 mg IVP Q24HR #16 vial 10/17/20 Allergies Allergy/AdvReac Type Severity Reaction Status Date / Time meperidine HCl [From Demerol] Allergy Anaphylaxis Verified 10/14/20 06:57 Review of Systems ROS Statement: Those systems with pertinent positive or pertinent negative responses have been documented in the HPI. ROS Other: All systems not noted in ROS Statement are negative. Constitutional: Denies: fever, chills Eyes: Denies: eye pain, vision change ENT: Reports: ear pain. Denies: hearing loss Respiratory: Denies: cough, dyspnea Cardiovascular: Denies: chest pain, palpitations Gastrointestinal: Denies: abdominal pain, vomiting, diarrhea Musculoskeletal: Denies: back pain Skin: Denies: rash Neurological: Reports: headache. Denies: weakness, numbness Past Medical History Past Medical History: GERD/Reflux, Hypertension Additional Past Medical History / Comment(s): gout, ear infection History of Any Multi-Drug Resistant Organisms: None Reported Past Surgical History: Appendectomy, Cholecystectomy, Orthopedic Surgery Additional Past Surgical History / Comment(s): rt index finger reattached Past Anesthesia/Blood Transfusion Reactions: Motion Sickness Past Psychological History: Anxiety Smoking Status: Former smoker Past Alcohol Use History: None Reported Past Drug Use History: None Reported - Past Family History Mother Family Medical History: Cancer Additional Family Medical History / Comment(s): melanoma General Exam Limitations: no limitations General appearance: alert, in no apparent distress Head exam: Present: atraumatic, normocephalic Eye exam: Present: normal appearance. Absent: scleral icterus, conjunctival injection ENT exam: Present: normal oropharynx, other (There is a small amount of edema to the right external auditory canal. Small amount of drainage. There is post erior radicular tenderness.) Neck exam: Present: normal inspection, full ROM. Absent: tenderness, meningismus, lymphadenopathy Respiratory exam: Present: normal lung sounds bilaterally. Absent: respiratory distress, wheezes, rales, rhonchi, stridor Cardiovascular Exam: Present: regular rate, normal rhythm, normal heart sounds. Absent: systolic murmur, diastolic murmur, rubs, gallop GI/Abdominal exam: Present: soft. Absent: distended, tenderness, guarding, rebound Extremities exam: Present: normal inspection, normal capillary refill. Absent: pedal edema, calf tenderness Back exam: Present: normal inspection. Absent: CVA tenderness (R), CVA tenderness (L) Neurological exam: Present: alert Skin exam: Present: warm, dry, intact, normal color. Absent: rash Course Vital Signs 10/14/20 10/14/20 02:41 06:44 Temperature 98 F Pulse Rate 66 72 Respiratory 20 18 Rate Blood Pressure 164/100 125/90 O2 Sat by Pulse 100 98 Oximetry Medical Decision Making - Medical Decision Making Patient is a 50-year-old man with right otitis, who has been taking outpatient treatment and continuing to worsen. Computed tomography scan here does show some mastoiditis associated. Will admit for intravenous antibiotics and ENT consult - Lab Data Result diagrams: 10/16/20 03:26 10/17/20 05:16 Disposition Clinical Impression: Mastoiditis of right side Disposition: ADMITTED IP TO THIS HOSP Condition: Fair Is patient prescribed a controlled substance at d/c from ED?: No
--- NOTE | 2020-10-14 04:05 | CT ---
EXAMINATION TYPE: CT mastoid wo con DATE OF EXAM: 10/14/2020 COMPARISON: None HISTORY: Right ear infection CT DLP: mGycm Automated exposure control for dose reduction was used. Images obtained from the bottom of the temporal bones through the orbits without contrast. There is mucosal thickening in the right side mastoid air cells. There is some debris in the right ex ternal auditory canal. There is opacification of the right side epitympanic recess. There is also sig nificant opacification of the right middle ear cavity. I see no focal bone destruction. There is no evidence of a posterior fossa mass. Internal auditory canals are symmetric. IMPRESSION: There is evidence of right-sided mastoiditis. There is increased density in the middle ear and also t he external auditory canal consistent with otitis interna and externa. Middle ear cavity opacified. N o bone destruction seen.
[2020-10-14] MEDS ORDERED: NALOXONE 0.4 MG/ML 1 ML VIAL IV PRN (04:30)
[2020-10-14] MEDS ORDERED: MORPHINE SULFATE 4 MG/ML SYRINGE IV PRN (04:30)
[2020-10-14] MEDS ORDERED: ONDANSETRON 4 MG/2 ML VIAL IVP PRN (04:30)
[2020-10-14] MEDS ORDERED: IBUPROFEN 600 MG TAB PO PRN (04:32)
[2020-10-14] MEDS ORDERED: HYDROcodone/APAP 7.5-325MG 1 EACH TAB PO PRN (04:32)
[2020-10-14] MEDS: SODIUM CHLORIDE 0.9% 1,000 ML IV SCH ×2 (05:08→13:35)
[2020-10-14 05:22] LABS: Basophils % (A) 1 %; Eosinophils # (A) 0.2 k/uL (0-0.7); Eosinophils % (A) 3 %; HCT 41.9 % (39.0-53.0); HGB 14.4 gm/dL (13.0-17.5); Lymphocytes # (A) 1.7 k/uL (1.0-4.8); Lymphocytes % (A) 29 %; MCH 30.5 pg (25.0-35.0); MCHC 34.3 g/dL (31.0-37.0); MCV 88.8 fL (80.0-100.0); Mean Platelet Volume 7.3; Monocytes # (A) 0.3 k/uL (0-1.0); Monocytes % (A) 5 %; Neutrophils # (A) 3.4 k/uL (1.3-7.7); Neutrophils % (A) 60 %; Platelet Count 206 k/uL (150-450); RBC 4.72 m/uL (4.30-5.90); RDW 13.5 % (11.5-15.5); WBC 5.7 k/uL (3.8-10.6)
[2020-10-14 05:32] LABS: African American GFR (CKD) >90 (>60 ml/min/1.73 sqM); Anion Gap 8 mmol/L; Blood Urea Nitrogen 20 mg/dL (9-20); C Reactive Protein 0.9 mg/dL (<1.0); Calcium 8.9 mg/dL (8.4-10.2); Carbon Dioxide 30 mmol/L (22-30); Chloride 103 mmol/L (98-107); Glucose 170 mg/dL (74-99); Non-African American GFR(CKD) >90 (>60 ml/min/1.73 sqM); Sodium 141 mmol/L (137-145)
[2020-10-14] MEDS ORDERED: KETOROLAC 15 MG/ML 1 ML VIAL IVP STA (06:38)
[2020-10-14 10:40] LABS: Glucose,Whole Blood 130 mg/dL (75-99)
[2020-10-14] MEDS: metFORMIN 500 MG TAB PO SCH ×2 (10:51→19:42)
[2020-10-14] MEDS ORDERED: VANCOMYCIN IV PER PHARMACY 1 EACH MISC MISCELLANE PRN (12:01)
[2020-10-14] MEDS: ENOXAPARIN 40 MG/0.4 ML SYRINGE SQ SCH (13:36)
[2020-10-14] MEDS ORDERED: VANCOMYCIN 2,500 MG in SODIUM CHLORIDE 0.9% 500 ML 500 ML IVPB ONE (14:00)
[2020-10-14] MEDS: CEFEPIME 2 GM in SODIUM CHLORIDE 0.9% 100 ML IVPB SCH (14:03)
[2020-10-14] MEDS: KETOROLAC 15 MG/ML 1 ML VIAL IVP PRN (14:06)
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
[2020-10-14] MEDS ORDERED: OFLOXACIN 0.3% OPHTH DROPS 5 ML BOTTLE RIGHT EAR SCH (16:00)
[2020-10-14] MEDS: busPIRone HCl 5 MG TAB PO SCH (19:42)
[2020-10-14] MEDS: allopurinoL 100 MG TAB PO SCH (19:42)
[2020-10-14] MEDS: hydroCHLOROthiazide 25 MG TAB PO SCH (19:42)
[2020-10-14] MEDS: atenoloL 50 MG TAB PO SCH ×2 (19:42→19:43)
[2020-10-14] MEDS: PANTOPRAZOLE 40 MG TABLET PO SCH (19:46)
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
[2020-10-14] MEDS: CIPROFLOXACIN-DEXAMETH 0.3-0.1% DROPS 7.5 ML BTL RIGHT EAR SCH (23:35)
[2020-10-15] MEDS: CEFEPIME 2 GM in SODIUM CHLORIDE 0.9% 100 ML IVPB SCH ×2 (00:16→12:26)
[2020-10-15] MEDS: VANCOMYCIN 2,000 MG in SODIUM CHLORIDE 0.9% 500 ML 500 ML IVPB SCH ×3 (00:17→17:49)
[2020-10-15] MEDS: KETOROLAC 15 MG/ML 1 ML VIAL IVP PRN ×2 (00:25→08:52)
--- NOTE | 2020-10-15 05:22 | CONS ---
CONSULTATION DATE OF SERVICE: 10/14/2020 REASON FOR CONSULTATION: Right-sided mastoiditis. HISTORY OF PRESENT ILLNESS: The patient is a 50-year-old male who started having pain and swelling to the right ear [place] was about 2 [place] ago. The patient denies any history of any trauma. The patient went to an Urgent Care where the patient was evaluated and was started on oral Keflex. Patient took the antibiotic for a few days. Did not have any improvement. Subsequently the patient came back to the [facility]. Did call his primary care physician who referred the patient to the ENT. The patient was evaluated by ENT and has been treated with local ear drops and Augmentin. The patient mentioned last night he was still having more pain and swelling to the right ear area. He has been having drainage. The patient described the pain to be more of a throbbing in nature with intensity almost 7 to 8/10 and no radiation. The patient did have some chills but denies high-grade fever. With these symptoms, the patient was evaluated by the ER physician. On arrival to the ER, the patient was afebrile. The patient did have a normal white count. Kidney function was normal. [place] PCR was negative. The patient did have a CT of the head and mastoid area with evidence of mastoiditis and density in the middle ear also externally consistent with otitis interna externa. The patient received a dose of Rocephin in the ER. Subsequent has been admitted to the hospital. Infectious Disease was consulted for further management of antibiotic therapy. REVIEW OF SYSTEMS: Positive points have been mentioned in HPI. Rest of systems are negative. PAST MEDICAL HISTORY: Gastroesophageal reflux disease, hypertension, gout. PAST SURGICAL HISTORY: Appendectomy, cholecystectomy, right index finger reattachment. SOCIAL HISTORY: Remote history of smoking. No drinking or drug use. FAMILY HISTORY: Mother with history of melanoma. ALLERGIES: TO MEPERIDINE. MEDICATIONS: The patient is currently on vancomycin, Pharmacy to dose , Zyloprim, Tenormin, BuSpar, cefepime, Lovenox, hydrochlorothiazide, Motrin, Toradol, and metformin. PHYSICAL EXAMINATION: Blood pressure is 131/46, pulse of 66, temperature 98.8. He is 98% on room air. General description: The patient is a middle-aged male lying in bed in no distress. No tachypnea or accessory muscles of respiration use. HEENT: Examination shows no pallor or scleral icterus. The patient did have a ruptured tympanic membrane on the right side with minimal fluid in the external auditory canal that was cultured. Did have evidence of tenderness to the mastoid area. NECK: Trachea central. No thyromegaly. LUNGS unlabored breathing. Clear to auscultation anteriorly with no wheeze or crackles. HEART S1, S2. Regular rate and rhythm. ABDOMEN soft, no tenderness. EXTREMITIES: No edema of the feet. SKIN: No rash or mass palpable. NEUROLOGICAL: Patient is awake, alert, oriented times three. Mood and affect normal. LABS: The patient did have a normal white count and creatinine and electrolytes were normal. CT of the mastoid area did show evidence of otitis media externa and acute mastoiditis. DIAGNOSTIC IMPRESSION AND PLAN: Patient admitted to the hospital with acute otitis media as well externa and mastoiditis that has failed outpatient oral Keflex, Augmentin therapy as well as local antibiotic cream. Will need to cover for the resistant gram-positive as well as Gram- negative pathogen. PLAN: 1. Local wound culture has been obtained to guide further antibiotic therapy. 2. The patient is currently covered with cefepime and vancomycin, pharmacy to dose to continue while watching his kidney function closely. 3. We will follow on his clinical condition and further adjust medication if needed. Thank you for this consultation. Will follow this patient along with you. MMODL / IJN: [id number] /
[2020-10-15] MEDS: metFORMIN 500 MG TAB PO SCH ×2 (08:55→21:00)
[2020-10-15] MEDS: CIPROFLOXACIN-DEXAMETH 0.3-0.1% DROPS 7.5 ML BTL RIGHT EAR SCH ×3 (08:55→21:03)
[2020-10-15] MEDS: ENOXAPARIN 40 MG/0.4 ML SYRINGE SQ SCH (08:55)
[2020-10-15] MEDS: SODIUM CHLORIDE 0.9% 1,000 ML IV SCH (08:59)
[2020-10-15] MEDS: hydroCHLOROthiazide 25 MG TAB PO SCH (12:26)
[2020-10-15 12:45] LABS: Glucose,Whole Blood 128 mg/dL (75-99)
--- NOTE | 2020-10-15 13:27 | PN ---
PROGRESS NOTE DATE OF SERVICE: 10/15/2020 REASON FOR FOLLOWUP: Right otitis media and mastoiditis. INTERVAL HISTORY: The patient is afebrile. The patient's pain to the right ear and mastoid area has slightly decreased intensity. Denies having any chest pain, shortness of breath or cough. No abdominal pain. No diarrhea. PHYSICAL EXAMINATION: Blood pressure 180/80 with a pulse of 56. Temperature 98.2. He is 98% on room air. General description is a middle-aged male lying in bed in no distress. HEENT examination: Right mastoid area swelling and redness slightly decreased. No drainage from the right ear. Lungs: Unlabored breathing. Clear to auscultation anteriorly. Heart S1, S2. Regular rate and rhythm. Abdomen soft, no tenderness. LABORATORY DATA: No new labs have been obtained today. Culture so far is Gram stain with Gram-positive cocci. DIAGNOSTIC IMPRESSION AND PLAN: Patient with right otitis media and concern for underlying mastoiditis, failing outpatient oral antibiotic therapy. The patient at this time covered with cefepime. Vancomycin to continue adjusting antibiotic further on the basis of culture report. Continue supportive care. MMODL / IJN: [id number] /
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
[2020-10-15] MEDS: NAPROXEN 250 MG TAB PO SCH ×2 (17:49→21:04)
[2020-10-15] MEDS: busPIRone HCl 5 MG TAB PO SCH (21:03)
[2020-10-15] MEDS: PANTOPRAZOLE 40 MG TABLET PO SCH (21:03)
[2020-10-15] MEDS: allopurinoL 100 MG TAB PO SCH (21:03)
[2020-10-16] MEDS: CEFEPIME 2 GM in SODIUM CHLORIDE 0.9% 100 ML IVPB SCH ×2 (00:03→14:14)
[2020-10-16] MEDS: SODIUM CHLORIDE 0.9% 1,000 ML IV SCH (00:04)
[2020-10-16] MEDS: VANCOMYCIN 2,000 MG in SODIUM CHLORIDE 0.9% 500 ML 500 ML IVPB SCH ×3 (01:04→21:09)
[2020-10-16 04:11] LABS: Basophils % (A) 1 %; Eosinophils # (A) 0.2 k/uL (0-0.7); Eosinophils % (A) 3 %; HCT 38.3 % (39.0-53.0); HGB 13.4 gm/dL (13.0-17.5); Lymphocytes # (A) 1.3 k/uL (1.0-4.8); Lymphocytes % (A) 27 %; MCH 31.3 pg (25.0-35.0); MCV 89.4 fL (80.0-100.0); Mean Platelet Volume 7.4; Monocytes # (A) 0.3 k/uL (0-1.0); Monocytes % (A) 5 %; Neutrophils # (A) 3.1 k/uL (1.3-7.7); Neutrophils % (A) 62 %; Platelet Count 165 k/uL (150-450); RBC 4.29 m/uL (4.30-5.90); RDW 13.4 % (11.5-15.5); WBC 4.9 k/uL (3.8-10.6)
[2020-10-16 04:23] LABS: African American GFR (CKD) >90 (>60 ml/min/1.73 sqM); Anion Gap 5 mmol/L; Blood Urea Nitrogen 19 mg/dL (9-20); Calcium 8.9 mg/dL (8.4-10.2); Carbon Dioxide 29 mmol/L (22-30); Chloride 106 mmol/L (98-107); Glucose 183 mg/dL (74-99); Non-African American GFR(CKD) >90 (>60 ml/min/1.73 sqM); Potassium 4.1 mmol/L (3.5-5.1); Sodium 140 mmol/L (137-145)
[2020-10-16] MEDS: KETOROLAC 15 MG/ML 1 ML VIAL IVP PRN ×2 (04:41→21:12)
[2020-10-16] MEDS: NAPROXEN 250 MG TAB PO SCH ×3 (06:22→22:57)
[2020-10-16] MEDS: CIPROFLOXACIN-DEXAMETH 0.3-0.1% DROPS 7.5 ML BTL RIGHT EAR SCH ×3 (08:59→19:20)
[2020-10-16] MEDS: hydroCHLOROthiazide 25 MG TAB PO SCH (09:00)
[2020-10-16] MEDS ORDERED: VANCOMYCIN TROUGH DUE 1 EACH MISC MISCELLANE ONE (09:00)
[2020-10-16] MEDS: ENOXAPARIN 40 MG/0.4 ML SYRINGE SQ SCH (09:00)
[2020-10-16] MEDS: metFORMIN 500 MG TAB PO SCH ×2 (09:01→19:11)
[2020-10-16 09:41] LABS: African American GFR (CKD) >90 (>60 ml/min/1.73 sqM); Non-African American GFR(CKD) >90 (>60 ml/min/1.73 sqM)
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
[2020-10-16 14:43] LABS: Hemoglobin A1C 7.5 % (4.0-6.0)
[2020-10-16] MEDS: atenoloL 50 MG TAB PO SCH (19:19)
[2020-10-16] MEDS: busPIRone HCl 5 MG TAB PO SCH (19:19)
[2020-10-16] MEDS: PANTOPRAZOLE 40 MG TABLET PO SCH (19:19)
[2020-10-16] MEDS: allopurinoL 100 MG TAB PO SCH (19:19)
[2020-10-16 20:01] LABS: Glucose,Whole Blood 193 mg/dL (75-99)
[2020-10-16 20:13] VITALS: TEMP 97.9
--- NOTE | 2020-10-17 00:10 | PN ---
PROGRESS NOTE DATE OF SERVICE: 10/16/2020. REASON FOR FOLLOWUP: Right otitis media and mastoiditis. INTERVAL HISTORY: The patient is currently afebrile. The patient's overall pain and discomfort to the right ear has decreased. The patient denies any chest pain, shortness of breath or cough. No nausea, vomiting. No abdominal pain. No diarrhea. PHYSICAL EXAMINATION: Blood pressure 142/91 with a pulse of 64, temperature 98. 99% on room air. General description is a middle-aged male lying in bed in no distress. HEENT examination: Right periauricular swelling and redness decreased. Lungs: Unlabored breathing, clear to auscultation anteriorly. Heart S1, S2. Regular rate and rhythm. Abdomen: Soft, no tenderness. LABS: Hemoglobin is 13.4, white count 4.9, BUN of 19, creatinine 0.81. DIAGNOSTIC IMPRESSION AND PLAN: Patient with right otitis media and osteomyelitis. Culture currently pending. Patient clinically responded to cefepime and Vanco to continue with discharge antibiotic based on culture report. Continue supportive care. MMODL / IJN: [id number] /
[2020-10-17] MEDS: SODIUM CHLORIDE 0.9% 1,000 ML IV SCH (00:53)
[2020-10-17] MEDS: CEFEPIME 2 GM in SODIUM CHLORIDE 0.9% 100 ML IVPB SCH (00:53)
[2020-10-17 06:36] LABS: African American GFR (CKD) >90 (>60 ml/min/1.73 sqM); Anion Gap 7 mmol/L; Blood Urea Nitrogen 18 mg/dL (9-20); Calcium 9.1 mg/dL (8.4-10.2); Carbon Dioxide 27 mmol/L (22-30); Chloride 106 mmol/L (98-107); Glucose 177 mg/dL (74-99); Non-African American GFR(CKD) >90 (>60 ml/min/1.73 sqM); Potassium 4.3 mmol/L (3.5-5.1); Sodium 140 mmol/L (137-145)
[2020-10-17] MEDS: metFORMIN 500 MG TAB PO SCH (08:59)
[2020-10-17] MEDS: VANCOMYCIN 2,000 MG in SODIUM CHLORIDE 0.9% 500 ML 500 ML IVPB SCH (09:03)
[2020-10-17] MEDS: NAPROXEN 250 MG TAB PO SCH (09:03)
[2020-10-17] MEDS: ENOXAPARIN 40 MG/0.4 ML SYRINGE SQ SCH (09:03)
[2020-10-17] MEDS: hydroCHLOROthiazide 25 MG TAB PO SCH (09:03)
[2020-10-17] MEDS: CIPROFLOXACIN-DEXAMETH 0.3-0.1% DROPS 7.5 ML BTL RIGHT EAR SCH (09:04)
[2020-10-17 12:38] VITALS: BP 172/94; PULSE 52; RESP 18
[2020-10-17] MEDS ORDERED: LIDOCAINE 1% INJ 10MG/ML (20 ML MDV) SQ ONE (13:43)
--- NOTE | 2020-10-17 15:38 | IR ---
EXAMINATION TYPE: IR cvc insert >=5 years DATE OF EXAM: 10/14/2020 COMPARISON: NONE CLINICAL HISTORY: Infection Needs long-term intravenous access for antibiotics. PROCEDURE: Hand hygiene obtained with soap and water and alcohol-based hand rub. After informed consent, the skin overlying the left basilic vein was localized with ultrasound and noted to be compressible and patent. An ultrasound image was obtained and submitted on the patient's chart. The overlying skin was prepped and draped and Lidocaine was used for local anesthesia. A skin saulo was made with a scalpel. Access was gained to the vein under ultrasound guidance with a 21 gauge needle and a 0.018 inch wire was advanced. Access site was dilated with Peel-Away sheath and catheter tailored to the appropriate length and advanced such that the distal tip is at the cavoatrial junction. Spot image was obtained verifying placement. Catheter was fixed to the skin and a sterile dressing was placed following hemostasis. Catheter was aspirated and flushed with saline. Patient was discharged in stable condition without complication.Maximal barrier technique is utilized. Ultrasound image is documented on the chart. Ultrasound used with sterile technique. Fluoro time and fluoroscopic images submitted to document procedure: 0.7 minutes fluoroscopy time, 58 intraoperative C-arm images document the procedure IMPRESSION: STATUS POST ULTRASOUND AND FLUOROSCOPIC GUIDED PICC LINE PLACEMENT, READY FOR USE. THIS PROCEDURE WAS PERFORMED BY THE UNDERSIGNED. KWAME
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
--- NOTE | 2020-10-17 16:35 | PN ---
PROGRESS NOTE DATE OF SERVICE: 10/17/2020 REASON FOR FOLLOWUP: Right otitis media and mastoiditis. INTERVAL HISTORY: Patient is afebrile. The patient is feeling better. The patient's right ear and behind the ear pain has decreased in intensity. The patient denies having any chest pain. No shortness of breath or cough. No abdominal pain or diarrhea. PHYSICAL EXAMINATION: Blood pressure is 172/94, pulse of 52, temperature is 97.9, he is 97% on room air. General description is a middle-aged male up in the room in no distress. HEENT examination: Right posterior auricular area pain and tenderness has decreased. Lungs unlabored breathing. Clear to auscultation anteriorly. Heart: S1, S2. Regular rate and rhythm. Abdomen: Soft, no tenderness. Extremities: No edema of the feet. LABS: BUN of 15, creatinine 0.68. Cultures have been negative. DIAGNOSTIC IMPRESSION AND PLAN: Patient with otitis media and right sided mastoiditis. Culture negative for resistant pathogen. Patient failing outpatient oral amoxicillin and Augmentin therapy. Antibiotic adjusted to Rocephin 2 grams daily. Plan is for 2 weeks antibiotics and close outpatient followup. Questions and concerns were answered. MMODL / IJN: [id number] /
[2020-10-18] MEDS ORDERED: VANCOMYCIN TROUGH DUE 1 EACH MISC MISCELLANE ONE (08:00)
== END 2020-10-17 15:24 | disposition home health service (06) | DRG 153 ==
LOC: EC 02:35 → 5NMEDONC 04:32
PROVIDERS: ADMIT Hospitalist; ATTEND Hospitalist
PROC: 02HV33Z Insertion of Infusion Device into Superior Vena Cava, Percutaneous Approach (ICD-10-PCS; principal; 2020-10-17 13:10)
DX: H70.001 Acute mastoiditis without complications, right ear (principal); M86.9 Osteomyelitis, unspecified; H66.011 Acute suppurative otitis media with spontaneous rupture of ear drum, right ear; E11.69 Type 2 diabetes mellitus with other specified complication; Z87.891 Personal history of nicotine dependence; E66.9 Obesity, unspecified; Z68.39 Body mass index [BMI] 39.0-39.9, adult; H60.21 Malignant otitis externa, right ear; F41.9 Anxiety disorder, unspecified; E11.649 Type 2 diabetes mellitus with hypoglycemia without coma; H90.2 Conductive hearing loss, unspecified; H92.10 Otorrhea, unspecified ear; I10 Essential (primary) hypertension; K21.9 Gastro-esophageal reflux disease without esophagitis; M1A.9XX0 Chronic gout, unspecified, without tophus (tophi); Z79.84 Long term (current) use of oral hypoglycemic drugs; Z80.8 Family history of malignant neoplasm of other organs or systems; Z90.49 Acquired absence of other specified parts of digestive tract
CPT/HCPCS: 36573; 70486; 80048; 80202; 82565; 83036; 85025; 86140; 87040; 87070; 87205; 87635; 99285

== ENCOUNTER 2020-10-27 14:24 | Emergency (ER) | payer BC ==
[2020-10-27] MEDS ORDERED: NITROGLYCERIN OINT 1 INCH/GM PACKET TOPICAL STA (14:40)
[2020-10-27] MEDS ORDERED: ASPIRIN 81 MG PO STA (14:40)
--- NOTE | 2020-10-27 14:43 | ED ---
General Adult HPI - General Chief complaint: Chest Pain Stated complaint: Chest Pain Time Seen by Provider: 10/27/20 14:25 Source: patient, RN notes reviewed, old records reviewed Mode of arrival: ambulatory Limitations: no limitations - History of Present Illness Initial comments: This is a 50-year-old male who presents emergency Department with a past medical history significant for diabetes hypertension high cholesterol and family history is strongly of heart disease. Patient states he had a PICC line placed about 10 days ago for mastoiditis that since Tuesday he's been experiencing some chest pain he considers it a 5 out of 10 in been extremely sweaty since then. Patient denies any difficulty breathing or shortness of breath per patient den ies any radiation of the pain. Patient states his home nurse saw him today and thought he didn't look well and his sinuses into the emergency department. Patient continues to have chest pain at this time. Patient denies any fever chills or cough however I took his temperature the room it was 100.1. Patient denies any swelling to the legs or calf tenderness. Patient denies abdominal pain. Patient states he is mildly nauseated but has not had vomiting. Patient denies any recent injury. - Related Data Home Medications Medication Instructions Recorded Confirmed Atenolol [Tenormin] 100 mg PO DAILY@172901/17/14 10/27/20 Omeprazole [PriLOSEC] 20 mg PO DAILY@172901/17/14 10/27/20 allopurinoL [Zyloprim] 100 mg PO DAILY@172903/29/18 10/27/20 hydroCHLOROthiazide [Hydrodiuril] 25 mg PO DAILY@172903/29/18 10/27/20 busPIRone HCl [Buspar] 5 mg PO DAILY@172910/14/20 10/27/20 metFORMIN HCL 1,000 mg PO BID 10/14/20 10/27/20 Amoxicillin/Potassium Clav 1 tab PO BID 10/27/20 10/27/20 [Augmentin 875-125 Tablet] Ofloxacin 0.3% Ophth Soln [Ocuflox 5 drops RIGHT EAR BID 10/27/20 10/27/20 Ophth Soln] Rosuvastatin [Crestor] 20 mg PO DAILY@172910/27/20 10/27/20 Previous Rx's Medication Instructions Recorded Naproxen [Naprosyn] 250 mg PO TID #30 tab 10/17/20 cefTRIAXone [Rocephin] 2,000 mg IVP Q24HR #16 vial 10/17/20 Allergies Allergy/AdvReac Type Severity Reaction Status Date / Time meperidine HCl [From Demerol] Allergy Anaphylaxis Verified 10/27/20 17:15 Review of Systems ROS Statement: Those systems with pertinent positive or pertinent negative responses have been documented in the HPI. ROS Other: All systems not noted in ROS Statement are negative. Past Medical History Past Medical History: GERD/Reflux, Hypertension Additional Past Medical History / Comment(s): gout, ear infection History of Any Multi-Drug Resistant Organisms: None Reported Past Surgical History: Appendectomy, Cholecystectomy, Orthopedic Surgery Additional Past Surgical History / Comment(s): rt index finger reattached Past Anesthesia/Blood Transfusion Reactions: Motion Sickness Past Psychological History: Anxiety Smoking Status: Former smoker Past Alcohol Use History: None Reported Past Drug Use History: None Reported - Past Family History Mother Family Medical History: Cancer Additional Family Medical History / Comment(s): melanoma General Exam - General Exam Comments Initial Comments: GENERAL: Patient is well-developed and well-nourished. Patient is nontoxic and well- hydrated and is in mild distress. Patient is diaphoretic ENT: Neck is soft and supple. No significant lymphadenopathy is noted. Oropharynx is clear. Moist mucous membranes. Neck has full range of motion without eliciting any pain. EYES: The sclera were anicteric and conjunctiva were pink and moist. Extraocular movements were intact and pupils were equal round and reactive to light. Eyelids were unremarkable. PULMONARY: Unlabored respirations. Good breath sounds bilaterally. No audible rales rhonc hi or wheezing was noted. CARDIOVASCULAR: There is a regular rate and rhythm without any murmurs gallops or rubs. ABDOMEN: Soft and nontender with normal bowel sounds. SKIN: Skin is clear with no lesions or rashes and otherwise unremarkable. NEUROLOGIC: Patient is alert and oriented x3. Cranial nerves II through XII are grossly intact. Motor and sensory are also intact. Normal speech, volume and content. Symmetrical smile. MUSCULOSKELETAL: Normal extremities with adequate strength and full range of motion. LYMPHATICS: No significant lymphadenopathy is noted PSYCHIATRIC: Normal psychiatric evaluation. Limitations: no limitations Course Vital Signs 10/27/20 10/27/20 10/27/20 14:25 14:30 14:42 Temperature 98.1 F 100.1 F H Pulse Rate 71 70 Pulse Rate [ 71 Right Radial] Respiratory 18 16 Rate Blood Pressure 155/91 145/99 O2 Sat by Pulse 97 95 Oximetry 10/27/20 17:28 Temperature 98.3 F Pulse Rate 60 Pulse Rate [ Right Radial] Respiratory 18 Rate Blood Pressure 152/92 O2 Sat by Pulse 95 Oximetry Medical Decision Making - Medical Decision Making EKG shows normal sinus rhythm at 67 bpm NJ interval 160 QRS is 92 QT interval is 414 QTC is 437. Patient's EKG shows no ST segment elevation or depression. Chest x-ray shows no acute abnormality . CT of the chest to rule out PE was done. I will back into review all the results with the patient and suggested that he states because of all of his risk factors and the fact that he had chest pain with diaphoresis patient refuses they understood the consequences potentially and will follow up he states with cardiology tomorrow morning - Lab Data Result diagrams: 10/27/20 14:53 10/27/20 14:53 Lab Results 10/27/20 10/27/20 10/27/20 Range/Units 14:53 14:53 14:53 WBC 6.1 (3.8-10.6) k/uL RBC 4.92 (4.30-5.90) m/uL Hgb 15.1 (13.0-17.5) gm/dL Hct 44.6 (39.0-53.0) % MCV 90.5 (80.0-100.0) fL MCH 30.7 (25.0-35.0) pg MCHC 33.9 (31.0-37.0) g/dL RDW 13.9 (11.5-15.5) % Plt Count 198 (150-450) k/uL MPV 7.4 Neutrophils % 54 % Lymphocytes % 33 % Monocytes % 6 % Eosinophils % 3 % Basophils % 1 % Neutrophils # 3.3 (1.3-7.7) k/uL Lymphocytes # 2.0 (1.0-4.8) k/uL Monocytes # 0.4 (0-1.0) k/uL Eosinophils # 0.2 (0-0.7) k/uL Basophils # 0.1 (0-0.2) k/uL PT 9.7 (9.0-12.0) sec INR 0.9 (<1.2) APTT 23.5 (22.0-30.0) sec D-Dimer 0.61 H (<0.60) mg/L FEU Sodium 141 (137-145) mmol/L Potassium 3.8 (3.5-5.1) mmol/L Chloride 102 (98-107) mmol/L Carbon Dioxide 29 (22-30) mmol/L Anion Gap 10 mmol/L BUN 22 H (9-20) mg/dL Creatinine 0.71 (0.66-1.25) mg/dL Est GFR (CKD-EPI)AfAm >90 (>60 ml/min/1.73 sqM) Est GFR (CKD-EPI)NonAf >90 (>60 ml/min/1.73 sqM) Glucose 242 H (74-99) mg/dL Plasma Lactic Acid Micheal (0.7-2.0) mmol/L Calcium 9.5 (8.4-10.2) mg/dL Magnesium 1.6 (1.6-2.3) mg/dL Total Bilirubin 0.4 (0.2-1.3) mg/dL AST 43 (17-59) U/L ALT 60 H (4-49) U/L Alkaline Phosphatase 73 (38-126) U/L Troponin I (0.000-0.034) ng/mL NT-Pro-B Natriuret Pep pg/mL Total Protein 6.7 (6.3-8.2) g/dL Albumin 4.4 (3.5-5.0) g/dL 10/27/20 10/27/20 10/27/20 Range/Units 14:53 14:53 14:53 WBC (3.8-10.6) k/uL RBC (4.30-5.90) m/uL Hgb (13.0-17.5) gm/dL Hct (39.0-53.0) % MCV (80.0-100.0) fL MCH (25.0-35.0) pg MCHC (31.0-37.0) g/dL RDW (11.5-15.5) % Plt Count (150-450) k/uL MPV Neutrophils % % Lymphocytes % % Monocytes % % Eosinophils % % Basophils % % Neutrophils # (1.3-7.7) k/uL Lymphocytes # (1.0-4.8) k/uL Monocytes # (0-1.0) k/uL Eosinophils # (0-0.7) k/uL Basophils # (0-0.2) k/uL PT (9.0-12.0) sec INR (<1.2) APTT (22.0-30.0) sec D-Dimer (<0.60) mg/L FEU Sodium (137-145) mmol/L Potassium (3.5-5.1) mmol/L Chloride (98-107) mmol/L Carbon Dioxide (22-30) mmol/L Anion Gap mmol/L BUN (9-20) mg/dL Creatinine (0.66-1.25) mg/dL Est GFR (CKD-EPI)AfAm (>60 ml/min/1.73 sqM) Est GFR (CKD-EPI)NonAf (>60 ml/min/1.73 sqM) Glucose (74-99) mg/dL Plasma Lactic Acid Micheal 1.3 (0.7-2.0) mmol/L Calcium (8.4-10.2) mg/dL Magnesium (1.6-2.3) mg/dL Total Bilirubin (0.2-1.3) mg/dL AST (17-59) U/L ALT (4-49) U/L Alkaline Phosphatase (38-126) U/L Troponin I <0.012 (0.000-0.034) ng/mL NT-Pro-B Natriuret Pep 67 pg/mL Total Protein (6.3-8.2) g/dL Albumin (3.5-5.0) g/dL Disposition Clinical Impression: Chest pain Disposition: Left Against Medical Advice Instructions (If sedation given, give patient instructions): Chest Pain (ED) Is patient prescribed a controlled substance at d/c from ED?: No Referrals: Karel Cole MD [Primary Care Provider] - 1-2 days Time of Disposition: 17:39
[2020-10-27] MEDS ORDERED: ACETAMINOPHEN TAB 500 MG TAB PO STA (14:58)
[2020-10-27 15:09] LABS: Basophils # (A) 0.1 k/uL (0-0.2); Basophils % (A) 1 %; Eosinophils # (A) 0.2 k/uL (0-0.7); Eosinophils % (A) 3 %; HCT 44.6 % (39.0-53.0); HGB 15.1 gm/dL (13.0-17.5); Lymphocytes % (A) 33 %; MCH 30.7 pg (25.0-35.0); MCHC 33.9 g/dL (31.0-37.0); MCV 90.5 fL (80.0-100.0); Mean Platelet Volume 7.4; Monocytes # (A) 0.4 k/uL (0-1.0); Monocytes % (A) 6 %; Neutrophils # (A) 3.3 k/uL (1.3-7.7); Neutrophils % (A) 54 %; Platelet Count 198 k/uL (150-450); RBC 4.92 m/uL (4.30-5.90); RDW 13.9 % (11.5-15.5); WBC 6.1 k/uL (3.8-10.6)
[2020-10-27 15:19] LABS: ALT 60 U/L (4-49); AST 43 U/L (17-59); African American GFR (CKD) >90 (>60 ml/min/1.73 sqM); Albumin 4.4 g/dL (3.5-5.0); Alkaline Phosphatase 73 U/L (38-126); Anion Gap 10 mmol/L; Blood Urea Nitrogen 22 mg/dL (9-20); Calcium 9.5 mg/dL (8.4-10.2); Carbon Dioxide 29 mmol/L (22-30); Chloride 102 mmol/L (98-107); Glucose 242 mg/dL (74-99); Magnesium 1.6 mg/dL (1.6-2.3); Non-African American GFR(CKD) >90 (>60 ml/min/1.73 sqM); Potassium 3.8 mmol/L (3.5-5.1); Sodium 141 mmol/L (137-145); Total Bilirubin 0.4 mg/dL (0.2-1.3); Total Protein 6.7 g/dL (6.3-8.2)
[2020-10-27 15:25] LABS: INR 0.9 (<1.2); Partial Thromboplastin Time 23.5 sec (22.0-30.0); Prothrombin Time 9.7 sec (9.0-12.0)
[2020-10-27 15:50] LABS: D-Dimer 0.61 mg/L FEU (<0.60)
--- NOTE | 2020-10-27 15:56 | XR ---
EXAMINATION TYPE: XR chest 2V DATE OF EXAM: 10/27/2020 COMPARISON: 01/17/2014 HISTORY: 50-year-old male with PICC line. Chest pain for 4 days TECHNIQUE: Frontal and lateral views of the chest are obtained. FINDINGS: There is a left PICC line with its tip at the cavoatrial junction. Heart size is within no rmal limits. Trachea is midline. Low lung volumes. No focal consolidation, pneumothorax or pleural ef fusion. Osseous IMPRESSION: Left Pic with its tip at the cavoatrial junction.
[2020-10-27 17:30] VITALS: BP 152/92; PULSE 60; RESP 18; TEMP 98.3
--- NOTE | 2020-10-27 17:31 | CT ---
EXAMINATION TYPE: CT chest angio for PE DATE OF EXAM: 10/27/2020 COMPARISON: None HISTORY: Elevated d-dimer and chest pain. CT DLP: 718 mGycm Automated exposure control for dose reduction was used. CONTRAST: Performed with IV Contrast, patient injected with 100ml mL of Isovue 370. There are 3-D post processed images. The lungs are clear of consolidation. There is no pleural effusion. Heart appears normal. There is no pericardial effusion. There are no hilar masses. There is no mediastinal adenopathy. Thoracic aorta is intact. There is no aneurysm or dissection. Ascending aorta measures 3.2 cm. There is normal contrast opacification of the pulmonary arteries. There are no filling defects. Thora cic spine is intact. Sternum is intact. There is no evidence of rib fracture. IMPRESSION: Negative exam. No evidence of pulmonary embolism.
== END 2020-10-27 17:50 | disposition left against medical advice (07) ==
LOC: EC 14:24
DX: R07.9 Chest pain, unspecified (principal); E11.9 Type 2 diabetes mellitus without complications; I10 Essential (primary) hypertension; E78.00 Pure hypercholesterolemia, unspecified; F41.9 Anxiety disorder, unspecified; M10.9 Gout, unspecified; K21.9 Gastro-esophageal reflux disease without esophagitis; Z79.84 Long term (current) use of oral hypoglycemic drugs; Z79.1 Long term (current) use of non-steroidal anti-inflammatories (NSAID); Z79.899 Other long term (current) drug therapy; Z88.5 Allergy status to narcotic agent; Z87.891 Personal history of nicotine dependence; Z82.49 Family history of ischemic heart disease and other diseases of the circulatory system
CPT/HCPCS: 36415; 93005; 85379; 83880; 80053; 83605; 83735; 84484; 85025; 85610; 85730; 87040; 71046; 71275; 99285; Q9967

== ENCOUNTER → 2021-02-10 | Outpatient (CLI) | payer BC ==
--- NOTE | 2021-02-10 20:24 | CT ---
EXAMINATION TYPE: CT iac wo con DATE OF EXAM: 02/10/2021 COMPARISON: 10/14/2020 HISTORY: right side hearing loss due to ear infection CT DLP: 142.7mGycm Automated exposure control for dose reduction was used. FINDINGS: The external auditory canals are patent bilaterally. Mastoid air cells show no evidence of abnormal opacification bilaterally. The middle ear ossicles are symmetric and unremarkable. There is no evidence of suspicious surrounding soft tissue density to suggest cholesteatoma. The scutum is preserved bilaterally. The cochlea and the semicircular canals are symmetric and unremarkable. Vestibular aqueduct and inte rnal carotid canal appear unremarkable. Temporomandibular joints are maintained bilaterally. Change s of chronic moderate maxillary sinusitis with mucous retention cysts mucosal thickening noted. Mild changes of sinusitis involving the ethmoid air cells. Mild mucosal thickening sphenoid sinus. IMPRESSION: 1. Near complete resolution of right-sided mastoiditis. Abnormal soft tissue within the middle ear patel s completely resolved correlate for response to therapy. There are 2 mild to moderate chronic sinusit is.
== END | disposition home or self-care (01) ==
LOC: RADCTMAIN 17:31
PROVIDERS: ATTEND Otolaryngology
DX: H91.91 Unspecified hearing loss, right ear (principal); J32.9 Chronic sinusitis, unspecified
CPT/HCPCS: 70480

== ENCOUNTER → 2021-05-08 | Outpatient (CLI) | payer BC | END | disposition home or self-care (01) | LOC: LABPAT 16:18 | PROVIDERS: ATTEND Otolaryngology | DX: Z01.812 Encounter for preprocedural laboratory examination (principal) | CPT/HCPCS: 84132; 93005 ==

== ENCOUNTER 2021-05-14 08:27 | Day surgery (SDC) | payer BC ==
[2021-05-07 10:13] VITALS: BMI 41.3
[~2021-05-14 08:27] MED LIST changes: +DEXAMETHASONE SOD PHOSPHATE 4 MG/ML 1 ML VIAL IV ONE; +FAMOTIDINE 20 MG/2 ML VIAL IV PRN; -HEPARIN SODIUM,PORCINE 5,000 UNIT/ML 1 ML VIAL SQ ONE; +HYDROmorphone 0.5 MG/0.5 ML SYRINGE IVP PRN; +LACTATED RINGERS 1,000 ML IV SCH; +LIDOCAINE 1% (10MG/ML) FOR IV START INTRADERMA PRN; +METOCLOPRAMIDE 5 MG/ML 2 ML VIAL IVP PRN; +ONDANSETRON 4 MG/2 ML VIAL IVP ONE; +Pre Op ABX Message 1 EACH MISC MISCELLANE ONE
[2021-05-14 09:22] LABS: Glucose,Whole Blood 144 mg/dL (75-99)
[2021-05-14] MEDS ORDERED: fentaNYL (PF) 50 MCG/ML 2 ML AMP ONE (09:59)
[2021-05-14] MEDS ORDERED: PROPOFOL 10 MG/ML 20 ML VIAL IV ONE (09:59)
[2021-05-14] MEDS ORDERED: SUCCINYLCHOLINE CHLORIDE VIAL 200 MG/10 ML VIAL IV ONE (09:59)
[2021-05-14] MEDS ORDERED: MIDAZOLAM 2 MG/2 ML VIAL ONE (09:59)
[2021-05-14] MEDS ORDERED: ePHEDrine 50 MG/ML 1 ML AMP ONE (09:59)
[2021-05-14] MEDS ORDERED: LIDOCAINE 1% INJ 10MG/ML (20 ML MDV) ONE (09:59)
[2021-05-14] MEDS ORDERED: LIDOCAINE 1%-EPI 1:100,000 20 ML VIAL SQ ONE (10:35)
[2021-05-14] MEDS ORDERED: GELATIN SPONGE,ABSORB (SMALL) 1 EACH SPONGE TOPICAL ONE ×2 (10:39)
[2021-05-14] MEDS ORDERED: CIPROFLOX/FLUOCIN OTIC 0.25ML DROPERETTE OTIC ONE ×2 (10:40)
[2021-05-14 11:34] VITALS: RESP 16; TEMP 97
--- NOTE | 2021-05-14 11:41 | P.OP ---
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 He's had this tympanic membranes perforation for an extended period time for many years and he has had recurring infections from water exposure. He was seen at the [place] [facility] but prefers surgery locally. All risks, benefits and alternative therapies were discussed in detail. Consent was obtained and all questions were answered. He did have a previous mastoiditis that had resolved. Operative Findings: Patient had a large central tympanic membrane perforation with multiple middle ear adhesions from the malleus to the promontory of the cochlea. Description of Procedure: This patient was taken to the operative room and placed in the supine position. A general inhalation anesthetic was administered to the patient by mask and subsequently intubated with a cuffed endotracheal tube by the department of anesthesia with a functioning IV line in place. The patient was monitored throughout the entire case by the department of anesthesia. The RIGHT ear was sterilely prepped and draped in usual fashion. We anesthetized the ear canal with lidocaine 1% with epinephrine 1 100,000 and allowed 10 minutes to wait for full vasoconstrictive effects to take place. We utilized a variable focal length Zeiss microscope for this procedure. Sterile procedure and precautions were taken. We visualized the ear canal and suctioned any skin debris and cerumen from the ear canal. We then identified the perforation and we removed the rim of the perforation with a house pick and biopsy forceps. This patient had some tympanosclerosis. We then elevated a tympanomeatal flap at the 12 and 6 o'clock position with use of a latha round knife and a elevator. The tympanomeatal flap was elevated with a gimmick and the middle ear was entered and examined. We entered the middle ear with magnification and found multiple middle ear adhesions. We lysed the adhesions with care to avoid any trauma to the middle ear structures. After the middle ear adhesions were lysed, Gelfoam soaked in ofloxacin drops were placed into the middle ear space and filled the middle ear. A bio design graft was cut to size and placed as an underlay graft. The tympanomeatal flap was then placed back into position and Gelfoam was placed in the ear canal. The graft was in excellent position and was tucked nicely under the tympanomeatal flap and the rim of the tympanic membrane. We then inserted a shindler ear pack. A Henry dressing was then placed over the right ear. The patient tolerated this procedure well and was taken to postanesthesia recovery in excellent condition. Patient will be discharged with follow-up for 1 week.
[2021-05-14 12:10] LABS: Glucose,Whole Blood 155 mg/dL (75-99)
[2021-05-14] MEDS ORDERED: ONDANSETRON 4 MG/2 ML VIAL ONE (12:34)
[2021-05-14] MEDS ORDERED: ONDANSETRON 4 MG/2 ML VIAL IVP ONE (12:35)
[2021-05-14] MEDS ORDERED: oxyCODONE-APAP 5-325MG 1 EACH TAB ONE (12:41)
[2021-05-14] MEDS ORDERED: oxyCODONE-APAP 5-325MG 1 EACH TAB PO ONE (12:42)
[2021-05-14 12:53] VITALS: PULSE 71
[2021-05-14 12:58] VITALS: BP 129/76
== END 2021-05-14 13:27 | disposition home or self-care (01) ==
LOC: OR 08:27
PROVIDERS: ATTEND Otolaryngology
DX: H72.01 Central perforation of tympanic membrane, right ear (principal); H74.11 Adhesive right middle ear disease; H90.3 Sensorineural hearing loss, bilateral; E11.9 Type 2 diabetes mellitus without complications; I10 Essential (primary) hypertension; K21.9 Gastro-esophageal reflux disease without esophagitis; M10.9 Gout, unspecified; E66.9 Obesity, unspecified; Z68.41 Body mass index [BMI] 40.0-44.9, adult; Z79.84 Long term (current) use of oral hypoglycemic drugs; Z79.899 Other long term (current) drug therapy; Z88.5 Allergy status to narcotic agent; Z87.891 Personal history of nicotine dependence; Z98.890 Other specified postprocedural states; Z82.49 Family history of ischemic heart disease and other diseases of the circulatory system; Z80.3 Family history of malignant neoplasm of breast; Z80.0 Family history of malignant neoplasm of digestive organs; Z83.42 Family history of familial hypercholesterolemia; Z83.3 Family history of diabetes mellitus; Z83.49 Family history of other endocrine, nutritional and metabolic diseases; Z83.52 Family history of ear disorders
CPT/HCPCS: 84132; 69631; C1763; J2250; J0330; J2765; J2405; J2001; J3010; J2704

== ENCOUNTER → 2021-05-23 | Outpatient (CLI) | payer BC ==
[2021-05-23 18:57] LABS: HCT 41.1 % (39.6-50.0); HGB 14.2 g/dL (13.0-17.0); MCH 30.6 pg (27.0-32.0); MCHC 34.5 g/dL (32.0-37.0); MCV 88.6 fL (80.0-97.0); Mean Platelet Volume 11.1 fL (9.5-12.2); Platelet Count 195 X 10*3/uL (140-440); RBC 4.64 X 10*6/uL (4.40-5.60); RDW 12.5 % (11.5-14.5); WBC 4.03 X 10*3/uL (4.50-10.00)
[2021-05-23 19:11] LABS: ALT 70 U/L (10-49); AST 48 U/L (14-35); African American GFR (CKD) 116.3 (60.0-200.0); Albumin 4.4 g/dL (3.8-4.9); Albumin/Globulin Ratio 2.12 (1.60-3.17); Alkaline Phosphatase 61 U/L (41-126); BUN/Creat Ratio 23.83 Ratio (12.00-20.00); Blood Urea Nitrogen 20.9 mg/dL (9.0-27.0); Calcium 9.1 mg/dL (8.7-10.3); Carbon Dioxide 22.9 mmol/L (20.0-27.5); Chloride 103 mmol/L (96-109); Chol/HDL Ratio 3.18 Ratio; Globulin 2.1 g/dL (1.6-3.3); Glucose 148 mg/dL (70-110); LDL Cholesterol,Calculated 48.6 mg/dL (0.0-131.0); Non-African American GFR(CKD) 100.3 (60.0-200.0); Potassium 3.9 mmol/L (3.5-5.5); Sodium 142 mmol/L (135-145); Total Protein 6.5 g/dL (6.2-8.2); Uric Acid 4.9 mg/dL (3.7-8.7)
== END | disposition home or self-care (01) ==
LOC: LABWHC1 10:13
PROVIDERS: ATTEND Nurse Practitioner Family
DX: Z00.00 Encounter for general adult medical examination without abnormal findings (principal); E11.9 Type 2 diabetes mellitus without complications
CPT/HCPCS: 80061; 80053; 84550; 85027; 82043; 82570; 83036; 36415; G0103

== ENCOUNTER → 2021-06-10 | Outpatient (CLI) | payer BC ==
--- NOTE | 2021-06-10 14:38 | XR ---
EXAMINATION TYPE: XR shoulder limited LT DATE OF EXAM: 06/10/2021 CLINICAL HISTORY: pain COMPARISON: NONE TECHNIQUE: Three views of the left shoulder are obtained. FINDINGS: There is no acute fracture/dislocation evident. The acromioclavicular and glenohumeral amina int spaces appear mildly narrowed. The visualized ribs are intact and unremarkable. IMPRESSION: 1. There is no acute fracture or dislocation. ICD 10 NO FRACTURE, INITIAL EVALUATION
== END | disposition home or self-care (01) ==
LOC: RADXRMAIN 14:20
PROVIDERS: ATTEND Internal Medicine
DX: M25.512 Pain in left shoulder (principal)

== ENCOUNTER → 2022-01-16 | Outpatient (CLI) | payer BC ==
[2022-01-16 16:44] LABS: ALT 61 U/L (10-49); AST 50 U/L (14-35); African American GFR (CKD) 112.3 (60.0-200.0); Albumin 4.6 g/dL (3.8-4.9); Alkaline Phosphatase 68 U/L (41-126); BUN/Creat Ratio 22.12 Ratio (12.00-20.00); Blood Urea Nitrogen 20.2 mg/dL (9.0-27.0); Calcium 9.5 mg/dL (8.7-10.3); Carbon Dioxide 28.8 mmol/L (20.0-27.5); Chloride 102 mmol/L (96-109); Chol/HDL Ratio 3.17 Ratio; Globulin 2.3 g/dL (1.6-3.3); Glucose 140 mg/dL (70-110); LDL Cholesterol,Calculated 59.9 mg/dL (0.0-131.0); Non-African American GFR(CKD) 96.9 (60.0-200.0); Potassium 4.1 mmol/L (3.5-5.5); Sodium 143 mmol/L (135-145); Total Protein 6.9 g/dL (6.2-8.2)
== END | disposition home or self-care (01) ==
LOC: LABWHC1 08:14
PROVIDERS: ATTEND Nurse Practitioner Family
DX: E11.9 Type 2 diabetes mellitus without complications (principal)
CPT/HCPCS: 36415; 80053; 80061; 83036

== ENCOUNTER 2023-02-28 17:19 | Emergency (ER) | payer BC ==
[2023-02-28 17:30] VITALS: BP 138/87; PULSE 67; RESP 20; TEMP 98.5
--- NOTE | 2023-02-28 17:34 | ED ---
General Adult HPI - General Chief complaint: Extremity Problem,Nontraumatic Stated complaint: left calf pain Time Seen by Provider: 02/28/23 17:25 Source: patient, RN notes reviewed Mode of arrival: ambulatory Limitations: no limitations - History of Present Illness Initial comments: Patient is a pleasant 52-year-old male presenting to the emergency department with concerns with left calf pain. Onset of symptoms was close to 2 weeks ago. Discomfort does increase with walking especially while walking in the [place] after doing his dear blind. No known injury. No swelling. No chest pain or dyspnea. No color change. No history of similar symptoms previously. Patient did go to urgent care and was advised come the emergency department to get an ultrasound. - Related Data Home Medications Medication Instructions Recorded Confirmed Omeprazole [PriLOSEC] 20 mg PO DAILY 01/17/14 06/16/22 atenoloL [Tenormin] 100 mg PO DAILY 01/17/14 06/16/22 allopurinoL [Zyloprim] 100 mg PO DAILY 03/29/18 06/16/22 hydroCHLOROthiazide [Hydrodiuril] 25 mg PO DAILY 03/29/18 06/16/22 metFORMIN HCL [Glucophage] 1,000 mg PO BID 10/14/20 06/16/22 Rosuvastatin [Crestor] 20 mg PO DAILY 10/27/20 06/16/22 Ibuprofen [Motrin] 800 mg PO Q8H PRN 02/17/21 06/16/22 ALPRAZolam [Xanax] 0.25 mg PO DAILY PRN 06/16/22 06/16/22 Albuterol Inhaler [Ventolin Hfa 1 - 2 puff INHALATION RT-Q6H PRN 06/16/22 06/16/22 Inhaler] Benzonatate [Tessalon Perle] 200 mg PO TID PRN 06/16/22 06/16/22 Cetirizine HCl 10 mg PO DAILY 06/16/22 06/16/22 Cyclobenzaprine [Flexeril] 10 mg PO BID PRN 06/16/22 06/16/22 busPIRone HCl [Buspar] 10 mg PO DAILY 06/16/22 06/16/22 glipiZIDE [glipiZIDE ER] 2.5 mg PO DAILY 06/16/22 06/16/22 Previous Rx's Medication Instructions Recorded Cyclobenzaprine [Flexeril] 10 mg PO TID PRN #12 tablet 02/28/23 Allergies Allergy/AdvReac Type Severity Reaction Status Date / Time meperidine HCl [From Demerol] Allergy Anaphylaxis Verified 02/28/23 17:23 Review of Systems ROS Statement: Those systems with pertinent positive or pertinent negative responses have been documented in the HPI. ROS Other: All systems not noted in ROS Statement are negative. Constitutional: Denies: fever Eyes: Denies: eye pain ENT: Denies: ear pain Respiratory: Denies: cough, dyspnea Cardiovascular: Denies: chest pain Endocrine: Denies: fatigue Gastrointestinal: Denies: abdominal pain Genitourinary: Denies: dysuria Musculoskeletal: Denies: back pain Neurological: Denies: weakness Past Medical History Past Medical History: Diabetes Mellitus, GERD/Reflux, Hyperlipidemia, Hypertension Additional Past Medical History / Comment(s): gout, RECURRING RT ear infection History of Any Multi-Drug Resistant Organisms: None Reported Past Surgical History: Appendectomy, Cholecystectomy, Orthopedic Surgery Additional Past Surgical History / Comment(s): rt index finger reattached Past Anesthesia/Blood Transfusion Reactions: Motion Sickness, Postoperative Nausea & Vomiting (PONV) Past Psychological History: Anxiety Smoking Status: Former smoker Past Alcohol Use History: None Reported Past Drug Use History: None Reported - Past Family History Mother Family Medical History: Cancer Additional Family Medical History / Comment(s): melanoma. colon cancer Father Family Medical History: Cancer Additional Family Medical History / Comment(s): colon cancer General Exam Limitations: no limitations General appearance: alert, in no apparent distress Head exam: Present: normocephalic Eye exam: Present: normal appearance Neck exam: Present: normal inspection Respiratory exam: Present: normal lung sounds bilaterally Cardiovascular Exam: Present: regular rate, normal rhythm Expanded Peripheral pulses: 2+: Dorsalis Pedis (R), Dorsalis Pedis (L) GI/Abdominal exam: Present: soft. Absent: tenderness Extremities exam: Present: calf tenderness (Left medial) Neurological exam: Present: alert. Absent: motor sensory deficit Psychiatric exam: Present: normal affect, normal mood Skin exam: Present: normal color Course Vital Signs 02/28/23 17:21 Temperature 98.5 F Pulse Rate 67 Respiratory 20 Rate Blood Pressure 138/87 O2 Sat by Pulse 96 Oximetry Medical Decision Making - Medical Decision Making Was pt. sent in by a medical professional or institution (, KAYODE, PARK MAINTAINER, urgent care, hospital, or correction...) When possible be specific @ -Patient was sent over by urgent care Did you speak to anyone other than the patient for history (EMS, parent, family, police, friend...)? What history was obtained from this source @ -No Did you review nursing and triage notes (agree or disagree)? Why? @ -I reviewed and agree with nursing and triage notes Were old charts reviewed (outside hosp., previous admission, EMS record, old EKG, old radiological studies, urgent care reports/EKG's, correction records)? Report findings @ -No old charts were reviewed Differential Diagnosis (chest pain, altered mental status, abdominal pain women, abdominal pain men, vaginal bleeding, weakness, fever, dyspnea, syncope, headache, dizziness, GI bleed, back pain, seizure, CVA, palpatations, mental health, musculoskeletal)? @ -Differential Musculoskeletal Muscular strain, contusion, ligament sprain, fracture, arthritis, septic arthritis, bursitis, cellulitis, muscle spasm, nerve compression, DVT, arterial occlusion, herpes zoster, electrolyte abnormality, tumor.... This is not meant to be in all inclusive list EKG interpreted by me (3pts min.). @ -As above X-rays interpreted by me (1pt min.). @ -None done CT interpreted by me (1pt min.). @ -None done U/S interpreted by me (1pt. min.). @ -Report reviewed What testing was considered but not performed or refused? (CT, X-rays, U/S, labs)? Why? @ -None What meds were considered but not given or refused? Why? @ -None Did you discuss the management of the patient with other professionals (professionals i.e. , KAYODE, PARK MAINTAINER, lab, RT, psych nurse, perinatal social worker, visual basic developer, teacher, police liaison officer, case management coordinator)? Give summary @ -No Was smoking cessation discussed for >3mins.? @ -No Was critical care preformed (if so, how long)? @ -No Were there social determinants of health that impacted care today? How? (Homelessness, low income, unemployed, alcoholism, drug addiction, transportation, low edu. Level, literacy, decrease access to med. care, snf, rehab)? @ -No Was there de-escalation of care discussed even if they declined (Discuss DNR or withdrawal of care, Hospice)? DNR status @ -No What co-morbidities impacted this encounter? (DM, HTN, Smoking, COPD, CAD, Cancer, CVA, ARF, Chemo, Hep., AIDS, mental health diagnosis, sleep apnea, morbid obesity)? @ -None Was patient admitted / discharged? Hospital course, mention meds given and route, prescriptions, significant lab abnormalities, going to OR and other pertinent info. @ -Patient reevaluated and updated. Patient is receptive to try and muscle relaxers. Patient already takes Motrin 800 at home. Patient advised consider orthopedic follow-up. Undiagnosed new problem with uncertain prognosis? @ -No Drug Therapy requiring intensive monitoring for toxicity (Heparin, Nitro, Insulin, Cardizem)? @ -No Were any procedures done? @ -No Diagnosis/symptom? @ -Left leg pain Acute, or Chronic, or Acute on Chronic? @ -Acute Uncomplicated (without systemic symptoms) or Complicated (systemic symptoms)? @ -default Side effects of treatment? @ -No Exacerbation, Progression, or Severe Exacerbation? @ -No Poses a threat to life or bodily function? How? (Chest pain, [place], [place], pneumonia, PE, COPD, DKA, ARF, appy, cholecystitis, CVA, Diverticulitis, Homicidal, Suicidal, threat to staff... and all critical care pts) @ -No Disposition Clinical Impression: Left leg pain Disposition: HOME SELF-CARE Condition: Stable Instructions (If sedation given, give patient instructions): Leg Pain (ED) Additional Instructions: Please do follow-up to primary care physician in the next day or 2 for recheck. Prescription for muscle relaxers have some to pharmacy. Continue Motrin as needed. Follow-up with orthopedics, number provided. Return for increased pain, swelling, color change, worsening symptoms or any other concerns. Prescriptions: Cyclobenzaprine [Flexeril] 10 mg PO TID PRN #12 tablet PRN Reason: Pain Is patient prescribed a controlled substance at d/c from ED?: No Referrals: Christian Etienne MD [REFERRING] - 1-2 days Gema Torres DO [Doctor of Osteopathic Medicine] - 1-2 days Time of Disposition: 18:29
--- NOTE | 2023-02-28 18:11 | US ---
EXAMINATION TYPE: US venous doppler duplex LE LT DATE OF EXAM: 02/28/2023 5:33 PM COMPARISON: NONE CLINICAL INDICATION: Male, 52 years old with history of pain; pain in left leg x 2 weeks. Pt states i t is getting worse. No hx of DVT. Not on blood thinners SIDE PERFORMED: Left TECHNIQUE: The lower extremity deep venous system is examined utilizing real time linear array sonog bridgett with graded compression, doppler sonography and color-flow sonography. VESSELS IMAGED: Common Femoral Vein Deep Femoral Vein Greater Saphenous Vein * Femoral Vein Popliteal Vein Small Saphenous Vein * Proximal Calf Veins (* superficial vessels) Left Leg: No evidence for DVT IMPRESSION: 1. Left lower extremity ultrasound negative for deep venous thrombosis.
== END 2023-02-28 18:58 | disposition home or self-care (01) ==
LOC: EC 17:19
DX: M79.662 Pain in left lower leg (principal); E11.9 Type 2 diabetes mellitus without complications; I10 Essential (primary) hypertension; K21.9 Gastro-esophageal reflux disease without esophagitis; E78.5 Hyperlipidemia, unspecified; F41.9 Anxiety disorder, unspecified; M10.9 Gout, unspecified; Z79.84 Long term (current) use of oral hypoglycemic drugs; Z79.899 Other long term (current) drug therapy; Z87.891 Personal history of nicotine dependence; Z88.5 Allergy status to narcotic agent; Z90.49 Acquired absence of other specified parts of digestive tract
CPT/HCPCS: 99283

== ENCOUNTER 2023-03-02 13:10 | Emergency (ER) | payer OTHER, BC ==
--- NOTE | 2023-03-02 14:05 | ED ---
General Adult HPI - General Stated complaint: left knee pain Time Seen by Provider: 03/02/23 14:03 Source: RN notes reviewed - History of Present Illness Initial comments: 52 year old male with no significant past medical history presents to the emergency department with a chief complaint of left left knee pain. Patient reports progressive left for the last 2 weeks. He reports yesterday he had a pop in his had worsening pain with movement. He was seen and evaluated here on 02/28/2023 where he had a negative Doppler ultrasound. This isn't taking Tylenol Motrin at home with mild symptomatic improvement. Denies numbness tingling, weakness in the extremity. - Related Data Home Medications Medication Instructions Recorded Confirmed Omeprazole [PriLOSEC] 20 mg PO DAILY 01/17/14 06/16/22 atenoloL [Tenormin] 100 mg PO DAILY 01/17/14 06/16/22 allopurinoL [Zyloprim] 100 mg PO DAILY 03/29/18 06/16/22 hydroCHLOROthiazide [Hydrodiuril] 25 mg PO DAILY 03/29/18 06/16/22 metFORMIN HCL [Glucophage] 1,000 mg PO BID 10/14/20 06/16/22 Rosuvastatin [Crestor] 20 mg PO DAILY 10/27/20 06/16/22 Ibuprofen [Motrin] 800 mg PO Q8H PRN 02/17/21 06/16/22 ALPRAZolam [Xanax] 0.25 mg PO DAILY PRN 06/16/22 06/16/22 Albuterol Inhaler [Ventolin Hfa 1 - 2 puff INHALATION RT-Q6H PRN 06/16/22 06/16/22 Inhaler] Benzonatate [Tessalon Perle] 200 mg PO TID PRN 06/16/22 06/16/22 Cetirizine HCl 10 mg PO DAILY 06/16/22 06/16/22 Cyclobenzaprine [Flexeril] 10 mg PO BID PRN 06/16/22 06/16/22 busPIRone HCl [Buspar] 10 mg PO DAILY 06/16/22 06/16/22 glipiZIDE [glipiZIDE ER] 2.5 mg PO DAILY 06/16/22 06/16/22 Previous Rx's Medication Instructions Recorded Cyclobenzaprine [Flexeril] 10 mg PO TID PRN #12 tablet 02/28/23 Ibuprofen [Motrin] 800 mg PO Q6HR #30 tab 03/02/23 Allergies Allergy/AdvReac Type Severity Reaction Status Date / Time meperidine HCl [From Demerol] Allergy Anaphylaxis Verified 03/02/23 14:11 Review of Systems ROS Statement: Those systems with pertinent positive or pertinent negative responses have been documented in the HPI. ROS Other: All systems not noted in ROS Statement are negative. Past Medical History Past Medical History: Diabetes Mellitus, GERD/Reflux, Hyperlipidemia, Hypertension Additional Past Medical History / Comment(s): gout, RECURRING RT ear infection History of Any Multi-Drug Resistant Organisms: None Reported Past Surgical History: Appendectomy, Cholecystectomy, Orthopedic Surgery Additional Past Surgical History / Comment(s): rt index finger reattached Past Anesthesia/Blood Transfusion Reactions: Motion Sickness, Postoperative Nausea & Vomiting (PONV) Past Psychological History: Anxiety Smoking Status: Former smoker Past Alcohol Use History: None Reported Past Drug Use History: None Reported - Past Family History Mother Family Medical History: Cancer Additional Family Medical History / Comment(s): melanoma. colon cancer Father Family Medical History: Cancer Additional Family Medical History / Comment(s): colon cancer General Exam - General Exam Comments Initial Comments: Visual Physical Exam Vital signs reviewed General: Well-appearing, nontoxic, no acute distress. Head: Normocephalic, atraumatic Eyes: PERRLA, EOMI ENT: Airway patent Chest: Nonlabored breathing Skin: No visual rash, normal skin tone Neuro: Alert and oriented 3 Musculoskeletal: No gross abnormalities General: Alert, in no acute distress Head: atraumatic normocephalic. Eyes PERRL, EOMI intact, mucous membranes moist Respiratory: Lungs clear to auscultation bilaterally Cardiovascular: Regular rate and rhythm Abdominal: Soft without guarding or rebound Extremities: Normal inspection with full range of motion and normal capillary refill, right knee with marked erythema or ecchymosis. Limited range of motion secondary to pain. No evidence of effusion. Volvulus addressed. Homans sign negative. Neuroogic: alert and oriented 3, CN II-XII intact, able to ambulate with steady gait Skin: warm dry and intact with normal color Course Vital Signs 03/02/23 14:05 Temperature 98.7 F Pulse Rate 63 Respiratory 18 Rate Blood Pressure 124/77 O2 Sat by Pulse 97 Oximetry - Reevaluation(s) Reevaluation #1: 03/02/23 15:51 Patient reevaluated and updated on results. Agreeable with the plan for discharge home. Medical Decision Making - Medical Decision Making Was pt. sent in by a medical professional or institution (KAYODE Lewis, TECHNICAL SUPPORT ASSISTANT, urgent care, hospital, or halfway...) When possible be specific @ -[No] Did you speak to anyone other than the patient for history (EMS, parent, family, police, friend...)? What history was obtained from this source @ -[No] Did you review nursing and triage notes (agree or disagree)? Why? @ -[I reviewed and agree with nursing and triage notes] Were old charts reviewed (outside hosp., previous admission, EMS record, old EKG, old radiological studies, urgent care reports/EKG's, halfway records)? Report findings @ -[No old charts were reviewed] Differential Diagnosis (chest pain, altered mental status, abdominal pain women, abdominal pain men, vaginal bleeding, weakness, fever, dyspnea, syncope, headache, dizziness, GI bleed, back pain, seizure, CVA, palpatations, mental health, musculoskeletal)? @ -[not applicable] EKG interpreted by me (3pts min.). @ -[As above] X-rays interpreted by me (1pt min.). @ Left knee x-rays negative for any evidence of fracture dislocation CT interpreted by me (1pt min.). @ -[None done] U/S interpreted by me (1pt. min.). @ -[None done] What testing was considered but not performed or refused? (CT, X-rays, U/S, labs)? Why? @ -[None] What meds were considered but not given or refused? Why? @ -[None] Did you discuss the management of the patient with other professionals (professionals i.e. KAYODE Lewis, TECHNICAL SUPPORT ASSISTANT, lab, RT, psych nurse, social sciences instructor, vegetable farmer, teacher, real estate officer, case aide)? Give summary @ -[No] Was smoking cessation discussed for >3mins.? @ -[No] Was critical care preformed (if so, how long)? @ -[No] Were there social determinants of health that impacted care today? How? (Homelessness, low income, unemployed, alcoholism, drug addiction, transportation, low edu. Level, literacy, decrease access to med. care, [facility], rehab)? @ -[No] Was there de-escalation of care discussed even if they declined (Discuss DNR or withdrawal of care, Hospice)? DNR status @ -[No] What co-morbidities impacted this encounter? (DM, HTN, Smoking, COPD, CAD, Cancer, CVA, ARF, Chemo, Hep., AIDS, mental health diagnosis, sleep apnea, morbid obesity)? @ -[None] Was patient admitted / discharged? Hospital course, mention meds given and route, prescriptions, significant lab abnormalities, going to OR and other pertinent info. @ Discharged. This is a pleasant 52-year-old male presents the emergency department with left knee pain. Patient had a thorough history and physical exam performed. Physical exam is essentially unremarkable. Heart rate regular rate and rhythm, lungs are to auscultation bilaterally abdomen soft and nontender. Left knee without market swelling or erythema. Limited range of motion secondary to pain. Negative Homans sign. 2+ DP/PT pulses.. Patient had Xr imaging which was negative for any intracranial proccess. I discussed results in detail with the patient verbalized understanding and all questions were addressed. Patient will be discharged home in stable condition. Return precautions discussed at length. Case discussed with Dr. Owusu Demetris who agrees with plan of care Undiagnosed new problem with uncertain prognosis? @ -[No] Drug Therapy requiring intensive monitoring for toxicity (Heparin, Nitro, Insulin, Cardizem)? @ -[No] Were any procedures done? @ -[No] Diagnosis/symptom? @ -Left knee pain Acute, or Chronic, or Acute on Chronic? @ -Acute Uncomplicated (without systemic symptoms) or Complicated (systemic symptoms)? @ -Uncomplicated Side effects of treatment? @ -[No] Exacerbation, Progression, or Severe Exacerbation? @ -[No] Poses a threat to life or bodily function? How? (Chest pain, [place], [place], pneumonia, PE, COPD, DKA, ARF, appy, cholecystitis, CVA, Diverticulitis, Homicidal, Suicidal, threat to staff... and all critical care pts) @ -Low likelihood Disposition Clinical Impression: Internal derangement of knee Disposition: HOME SELF-CARE Condition: Stable Instructions (If sedation given, give patient instructions): Knee Sprain (ED), Knee Pain (ED) Additional Instructions: Elevate when able Please take Tylenol or Motrin for pain Please return to the nearest emergency department symptoms worsen or persist Prescriptions: Ibuprofen [Motrin] 800 mg PO Q6HR #30 tab Is patient prescribed a controlled substance at d/c from ED?: No Referrals: Karel Cole MD [Primary Care Provider] - 1-2 days Janet Montoya DO [Doctor of Osteopathic Medicine] - 1-2 days Time of Disposition: 15:44
[2023-03-02] MEDS ORDERED: KETOROLAC 15 MG/ML 1 ML VIAL IM STA (14:20)
[2023-03-02 14:27] VITALS: RESP 18
--- NOTE | 2023-03-02 14:42 | XR ---
EXAMINATION TYPE: XR knee complete LT DATE OF EXAM: 03/02/2023 COMPARISON: None HISTORY: 52-year-old male anterior knee pain TECHNIQUE: 3 views FINDINGS: Small periarticular bone islands. Mild anterior soft tissue swelling. No knee joint effusion. Minimal spurring at the patellofemoral compartment. No acute fracture, subluxation, dislocation seen. IMPRESSION: No acute osseous abnormality seen.
[2023-03-02 16:48] VITALS: BP 128/62; PULSE 85; TEMP 98.2
== END 2023-03-02 16:30 | disposition home or self-care (01) ==
LOC: EC 13:10
DX: S80.01XA Contusion of right knee, initial encounter (principal); M23.91 Unspecified internal derangement of right knee; E11.9 Type 2 diabetes mellitus without complications; K21.9 Gastro-esophageal reflux disease without esophagitis; E78.5 Hyperlipidemia, unspecified; I10 Essential (primary) hypertension; F41.9 Anxiety disorder, unspecified; Z87.891 Personal history of nicotine dependence; Z79.899 Other long term (current) drug therapy; Z88.5 Allergy status to narcotic agent; Z79.84 Long term (current) use of oral hypoglycemic drugs; Z90.49 Acquired absence of other specified parts of digestive tract; X58.XXXA Exposure to other specified factors, initial encounter
CPT/HCPCS: 73562; 99283; 96372; L1830; J1885

== ENCOUNTER → 2023-06-01 | Outpatient (CLI) | payer BC ==
--- NOTE | 2023-06-03 18:32 | MR ---
EXAMINATION TYPE: MR knee LT wo con DATE OF EXAM: 06/01/2023 COMPARISON: Outside left knee x-rays March 07, 2023 HISTORY: Left knee pain and swelling since Feb 2023 TECHNIQUE: Multiplanar, multisequence images of the knee is performed without IV contrast. FINDINGS: MEDIAL MENISCUS: Medial bulging medial meniscus on coronal images. Globular and Oblique signal real estate associate ior horn appears to extend to the inferior articular surface. LATERAL MENISCUS: Anterior and posterior horns are intact without tear. CRUCIATE LIGAMENTS: The anterior and posterior cruciate ligaments are intact and unremarkable. COLLATERAL LIGAMENTS: The medial collateral ligament and lateral collateral ligament complex are inta ct. Fluid signal medial collateral ligament. EXTENSOR MECHANISM: Visualized quadriceps and patellar tendons are intact. EFFUSION: Moderate to large size suprapatellar joint effusion. POPLITEAL CYST: No popliteal/cobos cyst. TRICOMPARTMENT SPACES: Mild to moderate tricompartment joint space loss and mild spurring. CARTILAGE: Chondromalacia patella with cartilaginous loss along the posterior patellar pole particula rly superior aspect. There is cartilaginous loss medial tibial femoral compartment. BONE MARROW SIGNAL: Faint diminished T1 and increased T2 signal medial tibial femoral compartment pro minent sites of prominent cartilaginous loss. Areas of diminished T1 and increased T2 signal along th e superior aspect of the posterior patella. OTHER: No additional significant abnormality is appreciated. IMPRESSION: 1. 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 2. Large suprapatellar joint effusion. 3. Full-thickness tear posterior horn medial meniscus. 4. Mild MCL sprain injury.
== END | disposition home or self-care (01) ==
LOC: RADMRIMAIN 18:49
PROVIDERS: ATTEND Orthopaedic Surgery
DX: M17.12 Unilateral primary osteoarthritis, left knee (principal); M25.462 Effusion, left knee; M23.322 Other meniscus derangements, posterior horn of medial meniscus, left knee; M23.632 Other spontaneous disruption of medial collateral ligament of left knee

== ENCOUNTER 2024-01-05 19:56 | Emergency (ER) | payer BC ==
[2024-01-05 20:14] VITALS: RESP 18
--- NOTE | 2024-01-05 20:16 | ED ---
Extremity Problem HPI - General Source: patient Mode of arrival: ambulatory Limitations: no limitations <Óscar Grove - Last Filed: 01/05/24 20:15> <Rohan Rivero - Last Filed: 01/05/24 22:47> - General Chief complaint: Extremity Problem,Nontraumatic Stated complaint: L leg numbness Time Seen by Provider: 01/05/24 20:15 - History of Present Illness Initial comments: 53-year-old male presenting with chief complaint of left lower extremity pain. No injury. Patient does have history of blood clot a year and a half ago. He is a truck operator. No chest pain or difficulty breathing. Does not currently take any blood thinners. (Óscar Grove) Dictation was produced using [employer] dictation software. please excuse any grammatical, word or spelling errors. 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 Patient states sometimes when he walks feels like it is getting worse. Patient denies any history of blood clots. The ROS documented in this emergency department record has been reviewed and confirmed by me. Those systems with pertinent positive or negative responses have been documented in the HPI. All other systems are other negative and/or noncontributory. (Rohan Rivero) - Related Data Home Medications Medication Instructions Recorded Confirmed Omeprazole [PriLOSEC] 20 mg PO DAILY 01/17/14 06/16/22 atenoloL [Tenormin] 100 mg PO DAILY 01/17/14 06/16/22 allopurinoL [Zyloprim] 100 mg PO DAILY 03/29/18 06/16/22 hydroCHLOROthiazide [Hydrodiuril] 25 mg PO DAILY 03/29/18 06/16/22 metFORMIN HCL [Glucophage] 1,000 mg PO BID 10/14/20 06/16/22 Rosuvastatin [Crestor] 20 mg PO DAILY 10/27/20 06/16/22 Ibuprofen [Motrin] 800 mg PO Q8H PRN 02/17/21 06/16/22 ALPRAZolam [Xanax] 0.25 mg PO DAILY PRN 06/16/22 06/16/22 Albuterol Inhaler [Ventolin Hfa 1 - 2 puff INHALATION RT-Q6H PRN 06/16/22 06/16/22 Inhaler] Benzonatate [Tessalon Perle] 200 mg PO TID PRN 06/16/22 06/16/22 Cetirizine HCl 10 mg PO DAILY 06/16/22 06/16/22 Cyclobenzaprine [Flexeril] 10 mg PO BID PRN 06/16/22 06/16/22 busPIRone HCl [Buspar] 10 mg PO DAILY 06/16/22 06/16/22 glipiZIDE [glipiZIDE ER] 2.5 mg PO DAILY 06/16/22 06/16/22 Previous Rx's Medication Instructions Recorded Cyclobenzaprine [Flexeril] 10 mg PO TID PRN #12 tablet 02/28/23 Ibuprofen [Motrin] 800 mg PO Q6HR #30 tab 03/02/23 Amoxicillin 1,000 mg PO Q8H 10 Days #60 capsule 01/05/24 Allergies Allergy/AdvReac Type Severity Reaction Status Date / Time meperidine HCl [From Demerol] Allergy Anaphylaxis Verified 01/05/24 20:14 Review of Systems ROS Other: All systems not noted in ROS Statement are negative. <Óscar Grove - Last Filed: 01/05/24 20:15> ROS Other: All systems not noted in ROS Statement are negative. <Rohan Rivero - Last Filed: 01/05/24 22:47> ROS Statement: Those systems with pertinent positive or pertinent negative responses have been documented in the HPI. Past Medical History Past Medical History: Diabetes Mellitus, GERD/Reflux, Hyperlipidemia, Hypertension Additional Past Medical History / Comment(s): gout, RECURRING RT ear infection History of Any Multi-Drug Resistant Organisms: None Reported Past Surgical History: Appendectomy, Cholecystectomy, Orthopedic Surgery Additional Past Surgical History / Comment(s): rt index finger reattached Past Anesthesia/Blood Transfusion Reactions: Motion Sickness, Postoperative Nausea & Vomiting (PONV) Past Psychological History: Anxiety Smoking Status: Former smoker Past Alcohol Use History: None Reported Past Drug Use History: None Reported - Past Family History Mother Family Medical History: Cancer Additional Family Medical History / Comment(s): melanoma. colon cancer Father Family Medical History: Cancer Additional Family Medical History / Comment(s): colon cancer <Óscar Grove - Last Filed: 01/05/24 20:15> General Exam Limitations: no limitations <Óscar Grove - Last Filed: 01/05/24 20:15> <Rohan Rivero - Last Filed: 01/05/24 22:47> - General Exam Comments Initial Comments: Visual Physical Exam Vital signs reviewed General: Well-appearing, nontoxic, no acute distress. Head: Normocephalic, atraumatic Eyes: PERRLA, EOMI ENT: Airway patent Chest: Nonlabored breathing Skin: No visual rash, normal skin tone Neuro: Alert and oriented 3 Musculoskeletal: No gross abnormalities (Óscar Grove) PHYSICAL EXAM: General Impression: Alert and oriented x3, not in acute distress HEENT: Normocephalic atraumatic, extra-ocular movements intact, pupils equal and reactive to light bilaterally, mucous membranes moist. Cardiovascular: Heart regular rate and rhythm Chest: Able to complete full sentences, no retractions, no tachypnea Abdomen: abdomen soft, non-tender, non-distended, no organomegaly Musculoskeletal: Pulses present and equal in all extremities, no peripheral edema Motor: no focal deficits noted Neurological: CN II-XII grossly intact, no focal motor or sensory deficits noted Skin: Intact with no visualized rashes Psych: Normal affect and mood Left lower extremity: Slight calf tenderness with palpation, intact vascular pulse (Rohan Rivero) Course <Rohan Rivero - Last Filed: 01/05/24 22:47> Vital Signs 01/05/24 20:08 Temperature 98.1 F Pulse Rate 81 Respiratory 18 Rate Blood Pressure 138/88 O2 Sat by Pulse 96 Oximetry - Reevaluation(s) Reevaluation #1: 01/05/24 22:41 Bedside ultrasound was used showing good dopplerable dorsalis pedis and posterior tibialis pulse (Rohan Rivero) Medical Decision Making <Óscar Grove - Last Filed: 01/05/24 20:15> <Rohan Rivero - Last Filed: 01/05/24 22:47> - Medical Decision Making I performed the quick note portion of this visit, electronically signed Óscar Grove PA-C (Óscar Grove) Was pt. sent in by a medical professional or institution ([facility] Lewis, EVAPORATOR REPAIRER, urgent care, hospital, or fpc...) When possible be specific @ -No Did you speak to anyone other than the patient for history (EMS, parent, family, police, friend...)? What history was obtained from this source @ -No Did you review nursing and triage notes (agree or disagree)? Why? @ -I reviewed and agree with nursing and triage notes Were old charts reviewed (outside hosp., previous admission, EMS record, old EKG, old radiological studies, urgent care reports/EKG's, fpc records)? Report findings @ -No old charts were reviewed Differential Diagnosis (chest pain, altered mental status, abdominal pain women, abdominal pain men, vaginal bleeding, musculoskeletal, weakness, fever, dyspnea, syncope, headache, dizziness, GI bleed, back pain, seizure, CVA, palpatations, mental health)? @ -DVT, ischemic limb, cellulitis EKG interpreted by me (3pts min.). @ -None done X-rays interpreted by me (1pt min.). @ -None done CT interpreted by me (1pt min.). @ -None done U/S interpreted by me (1pt. min.). @ -Ultrasound shows compressible veins to the left lower extremity What testing was considered but not performed or refused? (CT, X-rays, U/S, labs)? Why? @ -None What meds were considered but not given or refused? Why? @ -None Was smoking cessation discussed for >3mins.? @ -No Were there social determinants of health that impacted care today? How? (Homelessness, low income, unemployed, alcoholism, drug addiction, transportation, low edu. Level, literacy, decrease access to med. care, [facility], rehab)? @ -No Was there de-escalation of care discussed even if they declined (Discuss DNR or withdrawal of care, Hospice)? DNR status @ -No What co-morbidities impacted this encounter? (DM, HTN, Smoking, COPD, CAD, Cancer, CVA, ARF, Chemo, Hep., AIDS, mental health diagnosis, sleep apnea, morbid obesity)? @ -None Was patient admitted / discharged? Hospital course, mention meds given and route, prescriptions, significant lab abnormalities, going to OR and other pertinent info. @ -67-year-old male presents to the emergency department with left lower extremity symptoms. Vital signs stable. Ultrasound shows no DVT. Bedside ultrasound shows strong power signal of dorsalis pedis and posterior tibialis artery. Clinical presentation likely secondary to Charcot arthropathy and peripheral neuropathy secondary to diabetes. Patient discharged advised follow- up with primary care doctor. Patient did mention at the time of discharge that he was having some right ear pain. Otoscopic examination shows otitis media. Did you discuss the management of the patient with other professionals (professionals i.e. , PA, EVAPORATOR REPAIRER, lab, RT, psych nurse, social studies teacher, upholstery estimator, teacher, hydrological technical officer, trimming caser)? Give summary @ -No Was critical care preformed (if so, how long)? @ -No Undiagnosed new problem with uncertain prognosis? @ -No Drug Therapy requiring intensive monitoring for toxicity (Heparin, Nitro, Insulin, Cardizem)? @ -No Were any procedures done? @ -No Diagnosis/symptom? Acute, or Chronic, or Acute on Chronic? Uncomplicated (without systemic symptoms) or Complicated (systemic symptoms)? @ -Otitis media, peripheral neuropathy Side effects of treatment? @ -No Exacerbation, Progression, or Severe Exacerbation? @ -No Poses a threat to life or bodily function? How? (Chest pain, [place], [place], pneumonia, PE, COPD, DKA, ARF, appy, cholecystitis, CVA, Diverticulitis, Homicidal, Suicidal, threat to staff... and all critical care pts) @ -No (Rohan Rivero) Disposition <Óscar Grove - Last Filed: 01/05/24 20:15> Is patient prescribed a controlled substance at d/c from ED?: No Time of Disposition: 22:47 <Rohan Rivero - Last Filed: 01/05/24 22:47> Clinical Impression: Otitis media, Neuropathy Disposition: HOME SELF-CARE Condition: Fair Instructions (If sedation given, give patient instructions): Peripheral Neuropathy (ED), Ear Infection (ED) Prescriptions: Amoxicillin 1,000 mg PO Q8H 10 Days #60 capsule Referrals: Karel Cole MD [Primary Care Provider] - 1-2 days
--- NOTE | 2024-01-05 21:40 | US ---
EXAMINATION TYPE: US venous doppler duplex LE LT DATE OF EXAM: 01/05/2024 9:20 PM COMPARISON: 02/28/2023 CLINICAL INDICATION: Male, 53 years old with history of pain; Patient states left leg pain since toda y. Not on thinners SIDE PERFORMED: Left TECHNIQUE: The lower extremity deep venous system is examined utilizing real time linear array sonog bridgett with graded compression, doppler sonography and color-flow sonography. VESSELS IMAGED: Common Femoral Vein Deep Femoral Vein Greater Saphenous Vein * Femoral Vein Popliteal Vein Small Saphenous Vein * Proximal Calf Veins (* superficial vessels) Left Leg: Negative for DVT. Comp deferred in the distal femoral vein due to patient pain, however co parker and spectral doppler seen. IMPRESSION: Grayscale, color doppler, spectral doppler imaging performed of the deep veins of the lo wer extremities. There is normal flow, compressibility, vascular waveforms.
[2024-01-05 23:02] VITALS: BP 135/78; PULSE 77; TEMP 98
== END 2024-01-05 23:06 | disposition home or self-care (01) ==
LOC: EC 19:56
CPT/HCPCS: 99283

== ENCOUNTER 2024-05-27 19:59 | Emergency (ER) | payer BC ==
[2024-05-27 20:02] VITALS: BP 162/97; PULSE 69; RESP 16; TEMP 97.9
--- NOTE | 2024-05-27 20:56 | ED ---
ENT HPI - General Chief complaint: ENT Stated complaint: Popping in right ear Time Seen by Provider: 05/27/24 20:04 Source: patient Mode of arrival: ambulatory Limitations: no limitations - History of Present Illness Initial comments: 53-year-old male presenting with chief complaint of right ear pain. Patient has history of recurrent right-sided ear infections. He has had pain and some yellow discharge for a few days. Last night he felt a pop and heard a bubbling sound in his ear. He was taking some old amoxicillin which did not seem to be improving the issue. No fever. No bleeding from the ear. He does have decreased hearing. He does currently follow with ENT. - Related Data Home Medications Medication Instructions Recorded Confirmed Omeprazole [PriLOSEC] 20 mg PO DAILY 01/17/14 06/16/22 atenoloL [Tenormin] 100 mg PO DAILY 01/17/14 06/16/22 allopurinoL [Zyloprim] 100 mg PO DAILY 03/29/18 06/16/22 hydroCHLOROthiazide [Hydrodiuril] 25 mg PO DAILY 03/29/18 06/16/22 metFORMIN HCL [Glucophage] 1,000 mg PO BID 10/14/20 06/16/22 Rosuvastatin [Crestor] 20 mg PO DAILY 10/27/20 06/16/22 Ibuprofen [Motrin] 800 mg PO Q8H PRN 02/17/21 06/16/22 ALPRAZolam [Xanax] 0.25 mg PO DAILY PRN 06/16/22 06/16/22 Albuterol Inhaler [Ventolin Hfa 1 - 2 puff INHALATION RT-Q6H PRN 06/16/22 06/16/22 Inhaler] Benzonatate [Tessalon Perle] 200 mg PO TID PRN 06/16/22 06/16/22 Cetirizine HCl 10 mg PO DAILY 06/16/22 06/16/22 Cyclobenzaprine [Flexeril] 10 mg PO BID PRN 06/16/22 06/16/22 busPIRone HCl [Buspar] 10 mg PO DAILY 06/16/22 06/16/22 glipiZIDE [glipiZIDE ER] 2.5 mg PO DAILY 06/16/22 06/16/22 Previous Rx's Medication Instructions Recorded Cyclobenzaprine [Flexeril] 10 mg PO TID PRN #12 tablet 02/28/23 Ibuprofen [Motrin] 800 mg PO Q6HR #30 tab 03/02/23 Amoxicillin 1,000 mg PO Q8H 10 Days #60 capsule 01/05/24 Amoxic-Pot Clav 875-125Mg 1 tab PO Q12HR 10 Days #20 tab 05/27/24 [Augmentin 875-125] Ketorolac [Toradol] 10 mg PO Q6HR PRN #12 tab 05/27/24 Allergies Allergy/AdvReac Type Severity Reaction Status Date / Time meperidine HCl [From Demerol] Allergy Anaphylaxis Verified 05/27/24 20:02 Review of Systems ROS Statement: Those systems with pertinent positive or pertinent negative responses have been documented in the HPI. ROS Other: All systems not noted in ROS Statement are negative. Past Medical History Past Medical History: Diabetes Mellitus, GERD/Reflux, Hyperlipidemia, Hypertension Additional Past Medical History / Comment(s): gout, RECURRING RT ear infection History of Any Multi-Drug Resistant Organisms: None Reported Past Surgical History: Appendectomy, Cholecystectomy, Orthopedic Surgery Additional Past Surgical History / Comment(s): rt index finger reattached Past Anesthesia/Blood Transfusion Reactions: Motion Sickness, Postoperative Naus ea & Vomiting (PONV) Past Psychological History: Anxiety Smoking Status: Former smoker Past Alcohol Use History: None Reported Past Drug Use History: None Reported - Past Family History Mother Family Medical History: Cancer Additional Family Medical History / Comment(s): melanoma. colon cancer Father Family Medical History: Cancer Additional Family Medical History / Comment(s): colon cancer General Exam Limitations: no limitations General appearance: alert, in no apparent distress Head exam: Present: atraumatic, normocephalic, normal inspection Eye exam: Present: normal appearance, EOMI Expanded Ear exam: Present: normal external inspection TM/Canal exam: Perforation: Right TM Mouth exam: Present: normal external inspection Neck exam: Present: normal inspection. Absent: meningismus Respiratory exam: Absent: respiratory distress Cardiovascular Exam: Present: regular rate Neurological exam: Present: alert, oriented X3 Psychiatric exam: Present: normal affect, normal mood Skin exam: Present: warm, dry Course Vital Signs 05/27/24 20:01 Temperature 97.9 F Pulse Rate 69 Respiratory 16 Rate Blood Pressure 162/97 O2 Sat by Pulse 99 Oximetry Medical Decision Making - Medical Decision Making Was pt. sent in by a medical professional or institution (, [facility], WARP DRAWER, urgent care, hospital, or fdc...) When possible be specific @ -No Did you speak to anyone other than the patient for history (EMS, parent, family, police, friend...)? What history was obtained from this source @ -No Did you review nursing and triage notes (agree or disagree)? Why? @ -I reviewed and agree with nursing and triage notes Were old charts reviewed (outside hosp., previous admission, EMS record, old EKG, old radiological studies, urgent care reports/EKG's, fdc records)? Report findings @ -Reviewed patient's previous visit for mastoiditis several years ago Differential Diagnosis (chest pain, altered mental status, abdominal pain women, abdominal pain men, vaginal bleeding, weakness, fever, dyspnea, syncope, headache, dizziness, GI bleed, back pain, seizure, CVA, palpatations, mental health, musculoskeletal)? @ -Differential includes otitis media, otitis externa, mastoiditis, foreign body, not an all-inclusive list EKG interpreted by me (3pts min.). @ -As above X-rays interpreted by me (1pt min.). @ -None done CT interpreted by me (1pt min.). @ -None done U/S interpreted by me (1pt. min.). @ -None done What testing was considered but not performed or refused? (CT, X-rays, U/S, labs)? Why? @ -None What meds were considered but not given or refused? Why? @ -None Did you discuss the management of the patient with other professionals (professionals i.e. , KAYODE, WARP DRAWER, lab, RT, psych nurse, geriatric social worker, negative spotter, teacher, radio division officer, housing case manager)? Give summary @ -No Was smoking cessation discussed for >3mins.? @ -No Was critical care preformed (if so, how long)? @ -No Were there social determinants of health that impacted care today? How? (Homelessness, low income, unemployed, alcoholism, drug addiction, transportation, low edu. Level, literacy, decrease access to med. care, [facility], rehab)? @ -No Was there de-escalation of care discussed even if they declined (Discuss DNR or withdrawal of care, Hospice)? DNR status @ -No What co-morbidities impacted this encounter? (DM, HTN, Smoking, COPD, CAD, Cancer, CVA, ARF, Chemo, Hep., AIDS, mental health diagnosis, sleep apnea, morbid obesity)? @ -None Was patient admitted / discharged? Hospital course, mention meds given and route, prescriptions, significant lab abnormalities, going to OR and other pertinent info. @ -53-year-old male with pain to the right ear. On exam there is evidence of left tympanic membrane perforation. No evidence of any blood or purulent discharge. No significant mastoid erythema or tenderness. Patient is afebrile. He will be started on Augmentin and Cipro drops. He is educated on today's findings and treatment plan. Follow-up with PCP and ENT. Report back to ER with any new or worsening symptoms. Discussed return parameters and answered all questions. Patient conveyed verbal understanding and agreed to the plan. I discussed this case in detail with my attending Dr. Lange Undiagnosed new problem with uncertain prognosis? @ -No Drug Therapy requiring intensive monitoring for toxicity (Heparin, Nitro, Insulin, Cardizem)? @ -No Were any procedures done? @ -No Diagnosis/symptom? @ -Otitis media, tympanic membrane perforation Acute, or Chronic, or Acute on Chronic? @ -Acute Uncomplicated (without systemic symptoms) or Complicated (systemic symptoms)? @ -Uncomplicated Side effects of treatment? @ -No Exacerbation, Progression, or Severe Exacerbation? @ -No Poses a threat to life or bodily function? How? (Chest pain, [place], [place], pneumonia, PE, COPD, DKA, ARF, appy, cholecystitis, CVA, Diverticulitis, Homicidal, Suicidal, threat to staff... and all critical care pts) @ -There is potential with any infection, seemingly low likelihood at this time Disposition Clinical Impression: Otitis media, Tympanic membrane perforation Disposition: HOME SELF-CARE Condition: Fair Instructions (If sedation given, give patient instructions): Ruptured Eardrum (ED), Ear Infection (ED) Additional Instructions: Follow-up with your ENT, call the office tomorrow. Report back to ER with any new or worsening symptoms. Apply 4 Cipro eardrops to the affected ear twice daily for 7 days. Do not combine ketorolac with other NSAIDs such as ibuprofen (Motrin or Advil) or naproxen (Aleve) Prescriptions: Amoxic-Pot Clav 875-125Mg [Augmentin 875-125] 1 tab PO Q12HR 10 Days #20 tab Ketorolac [Toradol] 10 mg PO Q6HR PRN #12 tab PRN Reason: Pain Is patient prescribed a controlled substance at d/c from ED?: No Referrals: Karel Cole MD [Primary Care Provider] - 1-2 days Narciso Scott MD [STAFF PHYSICIAN] - 1-2 days Time of Disposition: 20:56
[2024-05-27] MEDS: CIPROFLOXACIN-DEXAMETH 0.3-0.1% DROPS 7.5 ML BTL RIGHT EAR STA (21:30)
[2024-05-27] MEDS: AMOXIC-POT CLAV 875MG STARTER PACK 2 TAB BTL PO STA (21:30)
[2024-05-27] MEDS: KETOROLAC 15 MG/ML 1 ML VIAL IM STA (21:31)
== END 2024-05-27 21:42 | disposition home or self-care (01) ==
LOC: EC 19:59
DX: H66.91 Otitis media, unspecified, right ear (principal); H72.91 Unspecified perforation of tympanic membrane, right ear; Z87.891 Personal history of nicotine dependence; Z88.5 Allergy status to narcotic agent
CPT/HCPCS: 99283; 96372; J1885